=== PATIENT | male | born 1975 | race African-American/Black ===

== ENCOUNTER 2017-04-01 12:12 | Emergency (ER) | payer MEDICAID, OTHER ==
[~2017-04-01] VITALS: Ht 180.3 cm; Wt 79.4 kg
[2017-04-01 12:02] VITALS: BP 142/76
[~2017-04-01 12:12] MED LIST: DILANTIN30 MG ORAL
--- NOTE | 2017-04-01 12:53 | Emergency Room Report ---
History of Present Illness General Chief Complaint: Seizure Source: Medical Record, EMS (DARNELL DIETZ M.D.) Present Illness HPI 41YOM BIBEMS from [address] with witnessed seizure activity. Trauma noted abrasions to right forehead, abrasions to inner lip. No additional seizure per EMS. Was not given any meds. Patient post-ictal currently. EMR states has taken dilantin in past. Also ETOH abuse history. (DARNELL DIETZ M.D.) Allergies: Coded Allergies: No Known Allergies (Unverified , 12/24/13) Patient History Limited by: medical condition Past Medical History: seizures Past Surgical History: unable to obtain Social History: Reports: alcohol use Immunizations: UTD Reviewed Nursing Documentation: PMH: Agreed, PSxH: Agreed (DARNELL DIETZ M.D.) Nursing Documentation-PMH Hx Hypertension: Yes Hx Seizures: Yes (DARNELL DIETZ M.D.) Review of Systems All Other Systems: limited - post-ictal (DARNELL DIETZ M.D.) Physical Exam Vital Signs Date Time Temp Pulse Resp B/P Pulse Ox O2 Delivery O2 Flow Rate FiO2 04/01/17 11:55 98.2 72 14 142/76 99 Room Air Sp02 EP Interpretation: reviewed, normal General Appearance: normal inspection, well appearing, no apparent distress, Postictal Head: normocephalic, other - Abrasions to right forehead, inner right lip Eyes: bilateral eye EOMI, bilateral eye PERRL ENT: normal ENT inspection, hearing grossly normal, normal voice Neck: normal inspection, full range of motion, supple, no bony tend Respiratory: normal inspection, lungs clear, normal breath sounds, no respiratory distress, no retraction, no wheezing Cardiovascular #1: regular rate, rhythm, no edema Gastrointestinal: normal inspection, normal bowel sounds, non tender, soft, no guarding, no hernia Genitourinary: no CVA tenderness Musculoskeletal: normal inspection, back normal, normal range of motion, Blaine' s Sign negative Neurologic: normal inspection, alert, responsive, home health care coordinator III-XII nml as tested, motor strength/tone normal, speech normal Psychiatric: normal inspection, judgement/insight normal, mood/affect normal Skin: normal inspection, normal color, no rash (DARNELL DIETZ M.D.) Medical Decision Making Diagnostic Impression: Primary Impression: Seizure ER Course 41YOM with seizure. VSS. Afebrile. CT head unremarkable Endorsed to Dr Quick to followup labs, CXR and endorse for admission at 230pm (DARNELL DIETZ M.D.) ER Course Because of insurance patient will be transferred Case endorsed to Dr. Bro Patient transferred to [facility] (GEORGE QUICK M.D.) EKG Diagnostic Results Rate: normal Rhythm: NSR ST Segments: no acute changes ASA given to the pt in ED: No (DARNELL DIETZ M.D.) Rhythm Strip Diag. Results EP Interpretation: yes Rate: 82 (DARNELL DIETZ M.D.) Last Vital Signs Date Time Temp Pulse Resp B/P Pulse Ox O2 Delivery O2 Flow Rate FiO2 04/01/17 12:02 72 14 Room Air 04/01/17 12:02 142/76 99 04/01/17 11:55 98.2 Status: improved (DARNELL DIETZ M.D.) Status: improved (GEORGE QUICK M.D.) Disposition: XFER SHT-TRM HOSP Condition: Serious DARNELL DIETZ M.D. Apr 01, 2017 12:53 GEORGE QUICK M.D. Apr 01, 2017 16:18
[2017-04-01 13:05] LABS: BASOPHILS % (AUTO) 1.8 % (0.0-2.0); EOSINOPHILS % (AUTO) 4.1 % (0.0-3.0); LYMPHOCYTES % (AUTO) 24.3 % (20.0-45.0); MEAN CORPUSCULAR HEMOGLOBIN 32.2 PG (27.0-31.0); MEAN CORPUSCULAR VOLUME 92 FL (80-99); MEAN PLATELET VOLUME 8.1 FL (6.5-10.1); MONOCYTES % (AUTO) 13.1 % (1.0-10.0); NEUTROPHILS % (AUTO) 56.8 % (45.0-75.0); PLATELET COUNT 257 K/UL (150-450); RED BLOOD COUNT 4.49 M/UL (4.70-6.10); RED CELL DISTRIBUTION WIDTH 12.1 % (11.6-14.8); WHITE BLOOD COUNT 3.7 K/UL (4.8-10.8)
[2017-04-01 13:25] LABS: ACETAMINOPHEN < 10 ug/mL (10-30); ALANINE AMINOTRANSFERASE 26 U/L (3-41); ALCOHOL < 10 mg/dL; ANION GAP 19 (5-15); ASPARTATE AMINO TRANSFERASE 45 U/L (5-40); CALCIUM 9.7 mg/dL (8.6-10.2); CARBON DIOXIDE 24 mEQ/L (20-30); CHLORIDE 98 mEQ/L (98-107); GLOMERULAR FILTRATION RATE > 60 mL/min (>60); HEMOLYSIS 1; POTASSIUM 3.9 mEQ/L (3.4-4.9); SODIUM 141 mEQ/L (135-145); TOTAL PROTEIN 7.9 g/dL (6.6-8.7)
[2017-04-01 13:35] LABS: CKMB 8.6 ng/mL (< 6.7)
--- NOTE | 2017-04-01 14:10 | Diagnostic Imaging Report ---
Indications: Status post seizure Technique: Spiral acquisitions obtained through the brain. Angled axial and coronal 5 x 5 mm slices were reconstructed. Total dose length product 1270 mGycm. CTDI vol(s) 70 mGy. Dose reduction achieved using automated exposure control Comparison: None Findings: There is fairly symmetric bilateral inferior frontal encephalomalacia. There is suggestion of bilateral anterior temporal encephalomalacia, as well. No acute hemorrhage or edema. No mass effect or midline shift. Normal tyler-white differentiation. Normal size ventricles and extra-axial CSF spaces. Visualized orbits and sinuses are unremarkable. The calvarium is intact. 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 A metallic foreign body is seen in the soft tissues posterior to the right mandibular neck and just inferior to the external auditory canal. Impression: Negative for acute intracranial bleed or mass effect Fairly symmetrical bilateral inferior frontal and anterior temporal encephalomalacia. Suspect secondary to prior contusions due to prior head trauma. 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
[2017-04-01 14:34] VITALS: BP 119/68
--- NOTE | 2017-04-01 15:20 | Diagnostic Imaging Report ---
Indication: SOB Technique: One view of the chest Comparison: none Findings: Lungs and pleural spaces are clear. Heart size is normal. There is thoracolumbar scoliotic deformity Impression: No acute process Scoliosis
[2017-04-01 16:04] VITALS: BP 106/76
[2017-04-01 16:22] VITALS: BP 106/76
== END 2017-04-01 16:55 | disposition short-term general hospital (02) ==
LOC: EDBD 12:12 → EMR 13:49
DX: G40.909 Epilepsy, unspecified, not intractable, without status epilepticus (principal); S00.81XA Abrasion of other part of head, initial encounter; S00.511A Abrasion of lip, initial encounter; X58.XXXA Exposure to other specified factors, initial encounter; Y92.89 Other specified places as the place of occurrence of the external cause; I10 Essential (primary) hypertension; M41.85 Other forms of scoliosis, thoracolumbar region; G93.89 Other specified disorders of brain
CPT/HCPCS: 36415; 70450; 71010; 80053; 80185; 80329; 82553; 82962; 85025; 93005; 99285

== ENCOUNTER 2018-07-17 13:27 | Inpatient (IN) | payer OTHER ==
[~2018-07-17] VITALS: Ht 167.6 cm; Wt 80.3 kg
--- NOTE | 2018-07-17 14:04 | Emergency Room Report ---
History of Present Illness General Chief Complaint: Altered Mental Status Source: EMS Present Illness HPI Patient presents with reports of altered mental status Patient was brought in by paramedics Upon arrival the patient did have a tonic-clonic seizure type activity and was postictal afterwards a quick review of the patient's medical history does reveal several presentations to the emergency room with seizure activity At this time the patient is not able to provide significant history There was no IV access and therefore a left-sided EJ 20-gauge IV was placed by myself after alcohol prep Blood was drawn from the IV line and flushed Patient remains postictal Allergies: Coded Allergies: No Known Allergies (Unverified , 12/24/13) UNABLE TO ASSESS (Unverified , 07/17/18) Patient History Limited by: medical condition Past Medical History: see triage record Pertinent Family History: none Reviewed Nursing Documentation: PMH: Agreed; PSxH: Agreed Nursing Documentation-PMH Past Medical History: No History, Except For Hx Hypertension: Yes Hx Seizures: Yes Review of Systems All Other Systems: limited - Other than the ones mentioned in the history of present illness all others are reviewed however they do stay limited due to the patient's mental status Physical Exam Vital Signs Date Time Temp Pulse Resp B/P (MAP) Pulse Ox O2 Delivery O2 Flow Rate FiO2 07/17/18 13:21 97.9 110 20 124/84 96 Room Air 97.9 Sp02 EP Interpretation: reviewed, normal General Appearance: no apparent distress - However appears postictal Head: normocephalic - Scar left forehead, atraumatic Eyes: bilateral eye PERRL ENT: normal pharynx, no angioedema Neck: supple Respiratory: lungs clear Cardiovascular #1: regular rate, rhythm, no edema Gastrointestinal: non tender, soft Musculoskeletal: other - Postictal not following commands Neurologic: responsive - Responsive to physical stimuli otherwise not verbal not following commands, Skin: no rash, warm/dry Lymphatic: no adenopathy Medical Decision Making ER Course Patient had EJ IV line established on the left side of the neck IV hydration and extensive blood work is initiated Given the patient's prolonged post ictal state CT head was also obtained and the case signed out to my oncoming physician, Last Vital Signs Date Time Temp Pulse Resp B/P (MAP) Pulse Ox O2 Delivery O2 Flow Rate FiO2 07/17/18 13:21 97.9 110 20 124/84 96 Room Air 97.9 Signed Out To: Dr toscano 14:30 Adelso Lucas DO Jul 17, 2018 14:04
[2018-07-17 14:06] VITALS: BP 123/74
[2018-07-17] MEDS ORDERED: LORazepam Inj 2mg/ml 1ml ONE (14:09)
[2018-07-17] MEDS ORDERED: levETIRAcetam 500mg/NS100ml 100 ML IVPB ONE (14:15)
[2018-07-17] MEDS ORDERED: LORazepam Inj 2mg/ml 1ml IV ONE (14:15)
[2018-07-17 14:22] LABS: BASOPHILS % (AUTO) 2.3 % (0.0-2.0); EOSINOPHILS % (AUTO) 0.4 % (0.0-3.0); HEMATOCRIT 43.8 % (42.0-52.0); HEMOGLOBIN 14.5 G/DL (14.2-18.0); LYMPHOCYTES % (AUTO) 14.9 % (20.0-45.0); MEAN CORPUSCULAR VOLUME 93 FL (80-99); MONOCYTES % (AUTO) 10.5 % (1.0-10.0); NEUTROPHILS % (AUTO) 71.9 % (45.0-75.0); PLATELET COUNT 311 K/UL (150-450); RED BLOOD COUNT 4.73 M/UL (4.70-6.10); RED CELL DISTRIBUTION WIDTH 12.6 % (11.6-14.8)
[2018-07-17 14:32] LABS: ANION GAP 24 mmol/L (5-15); BLOOD UREA NITROGEN 12 mg/dL (7-18); CALCIUM 9.4 MG/DL (8.5-10.1); CARBON DIOXIDE 13 MMOL/L (21-32); CHLORIDE 103 MMOL/L (98-107); CREATININE 1.5 MG/DL (0.55-1.30); POTASSIUM 3.4 MMOL/L (3.5-5.1); SODIUM 140 MMOL/L (136-145)
[2018-07-17 14:36] LABS: ALANINE AMINOTRANSFERASE 29 U/L (12-78); ALBUMIN 3.5 G/DL (3.4-5.0); ALBUMIN/GLOBULIN RATIO 0.7 (1.0-2.7); ALKALINE PHOSPHATASE 104 U/L (46-116); ASPARTATE AMINO TRANSFERASE 38 U/L (15-37); BILIRUBIN,TOTAL 0.5 MG/DL (0.2-1.0)
--- NOTE | 2018-07-17 14:45 | Emergency Room Report ---
Physical Exam Please see the above note from Dr. Lucas. Patient has seizure here. Ativan was given. Patient has a history of seizures. Keppra was also ordered. Vital Signs Date Time Temp Pulse Resp B/P (MAP) Pulse Ox O2 Delivery O2 Flow Rate FiO2 07/17/18 13:21 97.9 110 20 124/84 96 Room Air 97.9 Note after seizure, O2 sat low as interpreted by me. Sp02 EP Interpretation: reviewed, normal General Appearance: well appearing, Postictal Head: normocephalic, atraumatic Eyes: bilateral eye PERRL, bilateral eye Scleral Injection, bilateral eye other - keeps eyes closed ENT: moist mucus membranes Neck: supple Respiratory: respiratory distress - mild, crackles, rhonchi Cardiovascular #1: tachycardia Cardiovascular #2: 2+ radial (R) Gastrointestinal: normal inspection, non tender, no mass, non-distended, no hernia, decreased bowel sounds, scaphoid Musculoskeletal: back normal, normal range of motion Neurologic: other - postictal Psychiatric: other - postictal Reflexes: 2+ knee (R), 2+ knee (L) Skin: normal inspection, warm/dry Medical Decision Making Diagnostic Impression: Primary Impression: Seizure Additional Impressions: Aspiration pneumonia Qualified Codes: J69.0 - Pneumonitis due to inhalation of food and vomit Cocaine abuse ER Course Patient presents postictal after seizure then seized here. Differential includes noncompliance, breakthrough seizure, head bleed, electrolyte abnormality amongst others. Ativan is given and also Keppra. Evaluation is with CT the head chest x-ray EKG and labs. He will receive IV hydration. CT no bleed. CXR RLL infiltrate. Labs with normal WBC. + cocaine. After the seizure here, he was hypoxic and had some tachypnea. Increasing oxygen, giving breathing treatments, blood cultures, antibiotics and admission. ABG on O2 acceptable ventilation, however hypoxia. Patient remains postictal and somnolent. Non-focal neuro and protects airway. Discussed with Dr. Bolanos who accepts patient. Laboratory Tests Test 07/17/18 13:50 07/17/18 15:25 White Blood Count 6.0 K/UL (4.8-10.8) Red Blood Count 4.73 M/UL (4.70-6.10) Hemoglobin 14.5 G/DL (14.2-18.0) Hematocrit 43.8 % (42.0-52.0) Mean Corpuscular Volume 93 FL (80-99) Mean Corpuscular Hemoglobin 30.6 PG (27.0-31.0) Mean Corpuscular Hemoglobin Concent 33.0 G/DL (32.0-36.0) Red Cell Distribution Width 12.6 % (11.6-14.8) Platelet Count 311 K/UL (150-450) Mean Platelet Volume 7.6 FL (6.5-10.1) Neutrophils (%) (Auto) 71.9 % (45.0-75.0) Lymphocytes (%) (Auto) 14.9 % (20.0-45.0) L Monocytes (%) (Auto) 10.5 % (1.0-10.0) H Eosinophils (%) (Auto) 0.4 % (0.0-3.0) Basophils (%) (Auto) 2.3 % (0.0-2.0) H Sodium Level 140 MMOL/L (136-145) Potassium Level 3.4 MMOL/L (3.5-5.1) L Chloride Level 103 MMOL/L (98-107) Carbon Dioxide Level 13 MMOL/L (21-32) L Anion Gap 24 mmol/L (5-15) H Blood Urea Nitrogen 12 mg/dL (7-18) Creatinine 1.5 MG/DL (0.55-1.30) H Estimate Glomerular Filtration Rate > 60 mL/min (>60) Glucose Level 117 MG/DL (74-106) H Calcium Level 9.4 MG/DL (8.5-10.1) Total Bilirubin 0.5 MG/DL (0.2-1.0) Aspartate Amino Transferase (AST) 38 U/L (15-37) H Alanine Aminotransferase (ALT) 29 U/L (12-78) Alkaline Phosphatase 104 U/L (46-116) Total Protein 8.4 G/DL (6.4-8.2) H Albumin 3.5 G/DL (3.4-5.0) Globulin 4.9 g/dL Albumin/Globulin Ratio 0.7 (1.0-2.7) L Salicylates Level 2.2 ug/mL (2.8-20) L Phenytoin (Dilantin) Level 0.7 ug/mL (10-20) L Serum Alcohol < 3 mg/dL Urine Opiates Screen Negative (NEGATIVE) Urine Barbiturates Screen Negative (NEGATIVE) Phencyclidine (PCP) Screen Negative (NEGATIVE) Urine Amphetamines Screen Negative (NEGATIVE) Urine Benzodiazepines Screen Negative (NEGATIVE) Urine Cocaine Screen Positive (NEGATIVE) H Urine Marijuana (THC) Screen Negative (NEGATIVE) EKG Diagnostic Results Rate: tachycardiac ST Segments: no acute changes - P pulmonale Rhythm Strip Diag. Results Rhythm: no PVC's, no ectopy, other - tachy Chest X-Ray Diagnostic Results Chest X-Ray Diagnostic Results : Chest X-Ray Ordered: Yes # of Views/Limited/Complete: 1 View Indication: Other EP Interpretation: Yes Interpretation: no effusion, no pneumothorax, other - RLL infiltrate Impression: Other Electronically Signed by: Electronically signed by Demetris Max MD Last Vital Signs Date Time Temp Pulse Resp B/P (MAP) Pulse Ox O2 Delivery O2 Flow Rate FiO2 07/17/18 15:35 119 25 139/87 96 Venturi Mask 50 07/17/18 15:26 12.0 07/17/18 13:21 97.9 97.9 Status: improved Disposition: ADMITTED INPATIENT Condition: Serious Scripts No Active Prescriptions or Reported Meds Referrals: [facility],REFERRING (PCP) Demetris Max M.D. Jul 17, 2018 14:45
[2018-07-17] MEDS ORDERED: Albuterol ud Inhalation HHN ONE (15:00)
[2018-07-17] MEDS ORDERED: cefTRIAXone 1 GM in NS 55 ML IVPB ONE (15:00)
[2018-07-17] MEDS ORDERED: UNOBMED (15:04)
[2018-07-17 15:35] VITALS: BP 139/87
--- NOTE | 2018-07-17 16:56 | Infectious Diseases Prog Note ---
Assessment/Plan Problems: (1) Aspiration pneumonia Assessment & Plan: will start levaquin empirically and send sputum culture , aspiration precaution, keep HOB > 30 degree (2) Seizure Assessment & Plan: with break through, restarted on keppra , continue neuro check , neuro eval (3) Cocaine abuse Assessment & Plan: recommend counseling and rehabilitation Subjective Allergies: Coded Allergies: No Known Allergies (Unverified , 12/24/13) UNABLE TO ASSESS (Unverified , 07/17/18) Objective Vital Signs Last 24 Hour Vital Signs Date Time Temp Pulse Resp B/P (MAP) Pulse Ox O2 Delivery O2 Flow Rate FiO2 07/17/18 15:35 119 25 139/87 96 Venturi Mask 50 07/17/18 15:26 118 25 94 Venturi Mask 12.0 50 07/17/18 15:07 122 24 93 Venturi Mask 12.0 50 07/17/18 15:03 122 24 Venturi Mask 12.0 50 07/17/18 14:06 112 20 123/74 93 Room Air 07/17/18 13:21 97.9 110 20 124/84 96 Room Air 97.9 Height (Feet): 5 Height (Inches): 6.00 Weight (Pounds): 150 Laboratory Tests Test 07/17/18 13:50 07/17/18 15:25 White Blood Count 6.0 K/UL (4.8-10.8) Red Blood Count 4.73 M/UL (4.70-6.10) Hemoglobin 14.5 G/DL (14.2-18.0) Hematocrit 43.8 % (42.0-52.0) Mean Corpuscular Volume 93 FL (80-99) Mean Corpuscular Hemoglobin 30.6 PG (27.0-31.0) Mean Corpuscular Hemoglobin Concent 33.0 G/DL (32.0-36.0) Red Cell Distribution Width 12.6 % (11.6-14.8) Platelet Count 311 K/UL (150-450) Mean Platelet Volume 7.6 FL (6.5-10.1) Neutrophils (%) (Auto) 71.9 % (45.0-75.0) Lymphocytes (%) (Auto) 14.9 % (20.0-45.0) L Monocytes (%) (Auto) 10.5 % (1.0-10.0) H Eosinophils (%) (Auto) 0.4 % (0.0-3.0) Basophils (%) (Auto) 2.3 % (0.0-2.0) H Sodium Level 140 MMOL/L (136-145) Potassium Level 3.4 MMOL/L (3.5-5.1) L Chloride Level 103 MMOL/L (98-107) Carbon Dioxide Level 13 MMOL/L (21-32) L Anion Gap 24 mmol/L (5-15) H Blood Urea Nitrogen 12 mg/dL (7-18) Creatinine 1.5 MG/DL (0.55-1.30) H Estimat Glomerular Filtration Rate > 60 mL/min (>60) Glucose Level 117 MG/DL (74-106) H Calcium Level 9.4 MG/DL (8.5-10.1) Total Bilirubin 0.5 MG/DL (0.2-1.0) Aspartate Amino Transf (AST/SGOT) 38 U/L (15-37) H Alanine Aminotransferase (ALT/SGPT) 29 U/L (12-78) Alkaline Phosphatase 104 U/L (46-116) Total Protein 8.4 G/DL (6.4-8.2) H Albumin 3.5 G/DL (3.4-5.0) Globulin 4.9 g/dL Albumin/Globulin Ratio 0.7 (1.0-2.7) L Salicylates Level 2.2 ug/mL (2.8-20) L Phenytoin (Dilantin) Level 0.7 ug/mL (10-20) L Serum Alcohol < 3 mg/dL Urine Opiates Screen Negative (NEGATIVE) Urine Barbiturates Screen Negative (NEGATIVE) Phencyclidine (PCP) Screen Negative (NEGATIVE) Urine Amphetamines Screen Negative (NEGATIVE) Urine Benzodiazepines Screen Negative (NEGATIVE) Urine Cocaine Screen Positive (NEGATIVE) H Urine Marijuana (THC) Screen Negative (NEGATIVE) Current Medications Medications (Trade) Dose Ordered Sig/Gonzalez Route PRN Reason Start Time Stop Time Status Last Admin Dose Admin Dextrose (Dextrose 50%) 25 ml Q1H PRN IV Hypoglycemia 07/17/18 16:30 08/16/18 16:29 Dextrose (Dextrose 50%) 50 ml Q1H PRN IV Hypoglycemia 07/17/18 16:30 08/16/18 16:29 Dextrose/Sodium Chloride 1,000 ml @ 100 mls/hr Q10H IV 07/17/18 17:21 08/16/18 17:20 UNV Folic Acid (Folate) 1 mg DAILY ORAL 07/18/18 09:00 08/17/18 08:59 Heparin Sodium (Porcine) (Heparin 5000 units/ml) 5,000 units EVERY 8 HOURS SUBQ 07/17/18 22:00 08/16/18 21:59 Ondansetron HCl (Zofran) 4 mg Q6H PRN IVP Nausea & Vomiting 07/17/18 16:30 08/16/18 16:29 Phenytoin (Dilantin) 300 mg DAILY ORAL 07/17/18 17:30 08/16/18 17:29 UNV Potassium Chloride 100 ml @ 100 mls/hr NOW ONCE IVPB 07/17/18 16:45 07/17/18 17:44 UNV Sodium Chloride 1,000 ml @ 300 mls/hr Q3H20M IV 07/17/18 14:45 08/16/18 14:44 Thiamine HCl (Vitamin B1) 100 mg DAILY ORAL 07/18/18 09:00 08/17/18 08:59 Beau Padilla M.D. Jul 17, 2018 16:56
[2018-07-17 17:46] VITALS: BP 149/85
[2018-07-17] MEDS ORDERED: Phenytoin Susp 100mg/4ml ORAL SCH ×2 (18:00→21:15)
[2018-07-17] MEDS ORDERED: D5NS 1,000 ML IV SCH (18:00)
--- NOTE | 2018-07-17 18:15 | Consultation ---
DATE OF CONSULTATION: 07/17/2018 INFECTIOUS DISEASE CONSULTATION CONSULTING PHYSICIAN: Beau Padilla M.D. REQUESTING PHYSICIAN: Dr Driss Sauer REASON FOR CONSULTATION: Aspiration pneumonia and possible sepsis. Recommendation for antibiotics treatment and the patient with seizure. HISTORY OF PRESENT ILLNESS: The patient is a 42-year-old male with past medical history of seizure disorder, drug abuse, and hypertension who is noncompliant, was brought in for altered mental status to [facility] emergency room via paramedics. The patient upon arrival had tonic-clonic seizure-type activities and was postictal for a while. The patient had multiple presentations to the emergency room in the past with similar symptoms. Chest x-ray was done in the emergency room showed right lower lobe infiltrate, suspicious for aspiration pneumonia. So, he was given levofloxacin and ceftriaxone, and Infectious Disease consultation was requested for antibiotics treatment and further management. As of note, the patient is postictal, could not provide any history. History was mainly obtained from the medical record. REVIEW OF SYSTEMS: Unable to obtain as the patient is altered. PAST MEDICAL HISTORY: Significant for seizure, hypertension, and drug abuse. PAST SURGICAL HISTORY: Negative, not on record. ALLERGIES: He has no known drug allergy. MEDICATIONS: The patient received levofloxacin and ceftriaxone in the emergency room. For the rest of his medications, please refer to MAR. SOCIAL HISTORY: The patient is homeless. He uses cocaine, drugs and possibly alcohol, unclear amount. FAMILY HISTORY: Unable to obtain. PHYSICAL EXAMINATION: VITAL SIGNS: Show temperature 97.9, pulse 110, respirations 20, blood pressure 124/84, and saturation 96% on room air. GENERAL: Young male, lying in bed, altered, unresponsive on high-flow oxygen via mask, not in acute distress. HEENT: Normocephalic and atraumatic. Pupils are reactive to light. Unable to assess oral mucosa. NECK: Supple. No lymphadenopathy. CARDIOVASCULAR: Regular rate and rhythm. No murmur. LUNGS: Clear with diminished breathing sounds at the bases with crackles on the right lower lobe. ABDOMEN: Soft, nontender, and nondistended. Normal bowel sounds. EXTREMITIES: No edema or cyanosis. Poor skin hygiene. LABORATORY DATA: White count of 6000, hemoglobin of 14.5, and platelet count of 311,000. BUN of 12 and creatinine of 1.5. AST of 38, AST of 29, alkaline phosphatase of 104. Toxicology screening was positive for cocaine in the urine. IMAGING: Chest x-ray showed right lower lobe infiltrate. ASSESSMENT AND RECOMMENDATION: 1. Aspiration pneumonia. We will start the patient on levofloxacin empiric coverage and send sputum culture. Aspiration precaution and keep head of bed more than 30 degrees. 2. Seizure breakthrough due to noncompliance, was restarted on Keppra. Continue neuro check with neuro evaluation. Monitor in tele. 3. Drug abuse with cocaine. Recommend rehabilitation and counseling. Thank you for the consult. ID will continue to follow. Beau Padilla M.D. DR: JIMY JOB#: [id number] CC: DUANE
--- NOTE | 2018-07-17 19:15 | History and Physical Report ---
DATE OF ADMISSION: 07/17/2018 REASON FOR ADMISSION: 1. Seizure. 2. Cocaine abuse. 3. Postictal. HISTORY OF PRESENT ILLNESS: The patient is a 42-year-old gentleman who presented to emergency room acutely encephalopathic with altered mental status, brought in by the paramedics. Upon presentation to the emergency room, he did have a witnessed tonic-clonic seizure activity and is currently postictal. Urine drug screen did note positive cocaine. His creatinine is 1.5, serum bicarbonate of 13 with salicylate level of 2.2. He is currently postictal, but arousable. ALLERGIES: No known drug allergies. PAST MEDICAL HISTORY: 1. Cocaine dependency. 2. Seizure disorder. FAMILY HISTORY: Positive for hypertension. REVIEW OF SYSTEMS: Cannot obtain as the patient is postictal, but arousable. PAST SURGICAL HISTORY: Unknown. The patient is postictal, but arousable. PHYSICAL EXAMINATION: VITAL SIGNS: Blood pressure 149/85, respiratory rate 21, pulse 103, on Venturi mask at 50% FiO2. GENERAL: The patient is somnolent, but arousable with sternal rub. HEENT: Extraocular muscles intact. NECK: No lymphadenopathy noted. CARDIOVASCULAR: S1 and S2. Tachycardic. PULMONARY: Clear to auscultation bilaterally. No rales, rhonchi, or wheezes. ABDOMEN: Nondistended and nontender. EXTREMITIES: No edema. LABORATORY DATA: Laboratories dated July 17, 2018, sodium 140, potassium 3.4, BUN 12, creatinine 1.5, calcium 9.4, AST 38, ALT 29. Blood gas, pH 7.3, pCO2 39, pO2 89. Hemoglobin 14.5, white cell count 6, and platelet count 311,000. Toxicology screen positive for cocaine. Salicylate level 2.2. Phenytoin level 0.7. Serum alcohol less than 3. ASSESSMENT AND PLAN: 1. Seizure disorder with subtherapeutic level of Dilantin and post cocaine dependency abuse and use. At this time, the patient is postictal. We will have Neurology when available to see the patient tomorrow. At this time, the patient is n.p.o. and will be given IV fluids for hydration. 2. Acute kidney injury with creatinine of 1.5, likely secondary to component of intravascular volume depletion. We will hydrate the patient aggressively. 3. Metabolic acidosis, anion gap, possibility due to severe dehydration and postictal. At this time, continue to aggressively hydrate the patient and recheck stat BMP and salicylate level. 4. Cocaine dependency and use. At this time, the patient is postictal and tachycardic. We will avoid any unopposed alpha antihypertensive medications. 5. DVT prophylaxis with heparin subcutaneous. 6. Aspiration pneumonia. At this time, Infectious Disease and Pulmonary to evaluate the patient. Driss Giron MD DR: Brigid JOB#: [id number] CC:
[2018-07-17 19:30] VITALS: BP 133/77
[2018-07-17 20:30] VITALS: BP 132/61
[2018-07-17] MEDS: Heparin 5000 units/ml inj SUBQ SCH (21:24)
[2018-07-17] MEDS: D5NS 1,000 ML IV SCH (21:24)
[2018-07-18] VITALS: BP 138/70
[2018-07-18 04:00] VITALS: BP 155/87
[2018-07-18] MEDS: Heparin 5000 units/ml inj SUBQ SCH ×3 (05:26→21:13)
[2018-07-18 08:00] VITALS: BP 134/79
--- NOTE | 2018-07-18 08:08 | Diagnostic Imaging Report ---
Indication: Altered mental status Technique: Continuous helical CT scanning of the head was performed utilizing automated exposure control without intravenous contrast material. Axial and coronal reconstructions were obtained. Comparison: 04/01/2017 CT dose: Total DLP 1555.02 mGycm; CTDI vol 70.38 mGy Findings: Exam degraded by patient motion. This particularly limits evaluation through the skull base. Within these limitations: There is no acute intracranial hemorrhage, mass effect, midline shift or cortical edema. There is unchanged bilateral for frontal and, to a lesser extent bilateral temporal lobe, encephalomalacia. The ventricles, cisterns and sulci are stable. Visualized mastoid air cells and paranasal sinuses are unremarkable. No acute fracture identified. A unchanged left zygomatic arch fracture is partially visualized. Unchanged small metallic foreign body in the posterior soft tissues adjacent to the right mandibular neck and just inferior to the external auditory canal. IMPRESSION: Exam degraded by patient motion. This particularly limits evaluation through the skull base. Within these limitations: No evidence of acute intracranial hemorrhage, mass effect or midline shift. MRI may be obtained for more sensitive evaluation as clinically indicated. Unchanged bilateral inferior frontal and anterior temporal lobe encephalomalacia. Additional stable findings as above. The CT scanner at [facility] is accredited by the [employer] and the scans are performed using protocols designed to limit radiation exposure to as low as reasonably achievable to attain images of sufficient resolution adequate for diagnostic evaluation.
--- NOTE | 2018-07-18 08:57 | Diagnostic Imaging Report ---
Indication: Shortness of breath Technique: XRAY Chest 1v Comparison: 04/01/2017 FINDINGS/IMPRESSION: Exam significantly limited by patient positioning with the patient rotated and leaning to the right significantly. Within these limitations: Heart size and mediastinal contours appear stable. No definite focal consolidation is noted. Costophrenic sulci appear sharp. No definite pneumothorax. There are remote/healed fracture deformities of some left-sided ribs. Thoracolumbar scoliotic deformity is similar to the prior exam. Consider repeat exam with better positioning for more sensitive evaluation as clinically indicated.
[2018-07-18] MEDS ORDERED: Thiamine 100mg tab ORAL SCH (09:00)
[2018-07-18] MEDS ORDERED: Phenytoin Susp 100mg/4ml ORAL SCH (09:00)
--- NOTE | 2018-07-18 09:11 | Diagnostic Imaging Report ---
Indication: Seizure Technique: XRAY Chest 1v Comparison: 07/17/2018, 14:32 Findings: Right size and mediastinal contours within normal limits. Iliac deformity of the spine again noted. There is some remote left-sided rib fractures. There is questionable subtle opacity in the right lower lung which may be related to confluence of vascular markings. Possible right sulci are sharp. No pneumothorax. Impression: Question subtle asymmetric opacity in the right lower lung which may. A developing infiltrate versus confluence of vascular shadows. Clinical correlation/follow-up exam recommended.
[2018-07-18] MEDS ORDERED: Phenytoin 100mg cap ORAL SCH (09:15)
--- NOTE | 2018-07-18 09:17 | Nephrology Progress Note ---
Subjective Date patient seen: Jul 18, 2018 Time patient seen: 09:08 ROS Limited/Unobtainable: No Constitutional: Reports: weakness Neurologic/Psychiatric: Reports: seizure Allergies: Coded Allergies: No Known Allergies (Unverified , 12/24/13) UNABLE TO ASSESS (Unverified , 07/17/18) Subjective A/P 1) IAIN- + cocaine - volume depletion - On IVFs - patient declining labs, will re-attempt collection 2) Seizure- + Cocaine and subtherapeutic Dilantin - consult Neuro for evaluation and reccs 3) DVT propylaxis- heparin sub q 4) Met Acidosis- patient declined Salicylate redraw - IVFs, and awaiting repeat BMP collection Tx to Tele Objective Last 24 Hour Vital Signs Date Time Temp Pulse Resp B/P (MAP) Pulse Ox O2 Delivery O2 Flow Rate FiO2 07/18/18 08:00 97.9 73 20 134/79 (97) 97 97.9 07/18/18 04:03 92 07/18/18 04:00 Venturi Mask 12.0 07/18/18 04:00 97.9 77 22 155/87 (109) 97 97.9 07/18/18 00:00 Venturi Mask 12.0 07/18/18 00:00 98.4 86 18 138/70 (92) 97 98.4 07/17/18 23:35 97 07/17/18 21:24 94 136/84 07/17/18 21:00 Venturi Mask 12.0 07/17/18 20:55 95 07/17/18 20:30 98.1 94 20 132/61 (84) 95 98.1 07/17/18 20:25 97.8 104 21 133/74 99 Venturi Mask 15.0 50 07/17/18 19:30 97.9 104 21 133/77 100 Venturi Mask 12.0 50 97.9 07/17/18 17:46 103 21 149/85 100 Venturi Mask 50 07/17/18 15:35 119 25 139/87 96 Venturi Mask 50 07/17/18 15:26 118 25 94 Venturi Mask 12.0 50 07/17/18 15:07 122 24 93 Venturi Mask 12.0 50 07/17/18 15:03 122 24 Venturi Mask 12.0 50 07/17/18 14:06 112 20 123/74 93 Room Air 07/17/18 13:21 97.9 110 20 124/84 96 Room Air 97.9 Intake and Output 07/17/18 07/18/18 19:00 07:00 Intake Total 1155 ml 1090 ml Output Total 1100 ml Balance 1155 ml -10 ml Intake Oral 340 ml IV Total 1155 ml 750 ml Output Urine Total 1100 ml # Voids 3 Laboratory Tests 07/17/18 13:50: White Blood Count 6.0, Red Blood Count 4.73, Hemoglobin 14.5, Hematocrit 43.8, Mean Corpuscular Volume 93, Mean Corpuscular Hemoglobin 30.6, Mean Corpuscular Hemoglobin Concent 33.0, Red Cell Distribution Width 12.6, Platelet Count 311, Mean Platelet Volume 7.6, Neutrophils (%) (Auto) 71.9, Lymphocytes (%) (Auto) 14.9L, Monocytes (%) (Auto) 10.5H, Eosinophils (%) (Auto) 0.4, Basophils (%) ( Auto) 2.3H, Sodium Level 140, Potassium Level 3.4L, Chloride Level 103, Carbon Dioxide Level 13L, Anion Gap 24H, Blood Urea Nitrogen 12, Creatinine 1.5H, Estimat Glomerular Filtration Rate > 60, Glucose Level 117H, Calcium Level 9.4, Total Bilirubin 0.5, Aspartate Amino Transf (AST/SGOT) 38H, Alanine Aminotransferase (ALT/SGPT) 29, Alkaline Phosphatase 104, Troponin I 0.000, Total Protein 8.4H, Albumin 3.5, Globulin 4.9, Albumin/Globulin Ratio 0.7L, Salicylates Level 2.2L, Phenytoin (Dilantin) Level 0.7L, Serum Alcohol < 3 07/17/18 14:51: Arterial Blood pH 7.337L, Arterial Blood Partial Pressure CO2 38.9, Arterial Blood Partial Pressure O2 88.8, Arterial Blood HCO3 20.4L, Arterial Blood Oxygen Saturation 96.0, Arterial Blood Base Excess -5.0, Fortunato Test Positive 07/17/18 15:25: Urine Opiates Screen Negative, Urine Barbiturates Screen Negative, Phencyclidine (PCP) Screen Negative, Urine Amphetamines Screen Negative, Urine Benzodiazepines Screen Negative, Urine Cocaine Screen PositiveH, Urine Marijuana (THC) Screen Negative Height (Feet): 5 Height (Inches): 6.00 Weight (Pounds): 174 Driss Giron MD Jul 18, 2018 09:17
[2018-07-18] MEDS: D5NS 1,000 ML IV SCH ×3 (09:27→23:48)
[2018-07-18 10:58] LABS: BASOPHILS % (AUTO) 0.5 % (0.0-2.0); EOSINOPHILS % (AUTO) 0.3 % (0.0-3.0); HEMATOCRIT 39.8 % (42.0-52.0); HEMOGLOBIN 13.2 G/DL (14.2-18.0); LYMPHOCYTES % (AUTO) 14.5 % (20.0-45.0); MEAN CORPUSCULAR VOLUME 92 FL (80-99); MONOCYTES % (AUTO) 5.3 % (1.0-10.0); NEUTROPHILS % (AUTO) 79.4 % (45.0-75.0); PLATELET COUNT 273 K/UL (150-450); RED BLOOD COUNT 4.31 M/UL (4.70-6.10); RED CELL DISTRIBUTION WIDTH 12.9 % (11.6-14.8); WHITE BLOOD COUNT 7.2 K/UL (4.8-10.8)
[2018-07-18 11:19] LABS: ANION GAP 8 mmol/L (5-15); BLOOD UREA NITROGEN 7 mg/dL (7-18); CARBON DIOXIDE 26 MMOL/L (21-32); CHLORIDE 108 MMOL/L (98-107); POTASSIUM 3.3 MMOL/L (3.5-5.1); SODIUM 142 MMOL/L (136-145)
[2018-07-18 12:00] VITALS: BP 129/73
[2018-07-18] MEDS ORDERED: D5NS 1000ml IV ONE (15:35)
[2018-07-18] MEDS ORDERED: Tubing IV Secondary IV ONE (15:35)
[2018-07-18 16:00] VITALS: BP 116/69
--- NOTE | 2018-07-18 16:31 | Infectious Diseases Prog Note ---
Assessment/Plan Problems: (1) Aspiration pneumonia Assessment & Plan: continue levaquin empirically pending sputum culture , aspiration precaution, keep HOB > 30 degree (2) Seizure Assessment & Plan: with break through, restarted on keppra , continue neuro check , neuro eval (3) Cocaine abuse Assessment & Plan: recommend counseling and rehabilitation (4) Bacteremia due to Gram-positive bacteria Assessment & Plan: will start vancomycin pending identification Subjective Constitutional: Reports: no symptoms HEENT: Reports: no symptoms Respiratory: Reports: productive cough Breasts: Reports: no symptoms Cardiovascular: Reports: no symptoms Gastrointestinal/Abdominal: Reports: no symptoms Genitourinary: Reports: no symptoms Neurologic: Reports: weakness, confusion Psychiatric: Reports: depression Skin: Reports: no symptoms Endocrine: Reports: no symptoms Hematologic: Reports: no symptoms Musculoskeletal: Reports: no symptoms Allergies: Coded Allergies: No Known Allergies (Unverified , 12/24/13) UNABLE TO ASSESS (Unverified , 07/17/18) Objective Vital Signs Last 24 Hour Vital Signs Date Time Temp Pulse Resp B/P (MAP) Pulse Ox O2 Delivery O2 Flow Rate FiO2 07/18/18 16:00 Venturi Mask 12.0 07/18/18 16:00 97.9 73 18 116/69 (85) 98 97.9 07/18/18 12:00 96.6 64 20 129/73 (91) 100 96.6 07/18/18 12:00 Venturi Mask 12.0 07/18/18 12:00 66 07/18/18 09:28 73 134/79 07/18/18 08:00 97.9 73 20 134/79 (97) 97 97.9 07/18/18 08:00 73 07/18/18 08:00 Venturi Mask 12.0 07/18/18 04:03 92 07/18/18 04:00 Venturi Mask 12.0 07/18/18 04:00 97.9 77 22 155/87 (109) 97 97.9 07/18/18 00:00 Venturi Mask 12.0 07/18/18 00:00 98.4 86 18 138/70 (92) 97 98.4 07/17/18 23:35 97 07/17/18 21:24 94 136/84 07/17/18 21:00 Venturi Mask 12.0 07/17/18 20:55 95 07/17/18 20:30 98.1 94 20 132/61 (84) 95 98.1 07/17/18 20:25 97.8 104 21 133/74 99 Venturi Mask 15.0 50 07/17/18 19:30 97.9 104 21 133/77 100 Venturi Mask 12.0 50 97.9 07/17/18 17:46 103 21 149/85 100 Venturi Mask 50 Height (Feet): 5 Height (Inches): 6.00 Weight (Pounds): 174 General Appearance: WD/WN, no acute distress HEENT: normocephalic, atraumatic, anicteric, mucous membranes moist, PERRL Respiratory/Chest: chest wall non-tender, no respiratory distress, no accessory muscle use, decreased breath sounds, crackles/rales Cardiovascular: normal peripheral pulses, normal rate, regular rhythm, no gallop/murmur, no JVD Abdomen: normal bowel sounds, soft, non tender, no organomegaly, non distended , no mass, no scars Extremities: no cyanosis, no clubbing Skin: no rash, no lesions, no ulcers Neurologic/Psychiatric: alert, responsive Lymphatic: no neck adenopathy, no groin adenopathy Musculoskeletal: normal muscle bulk, no effusion Microbiology Date/Time Source Procedure Growth Status 07/17/18 14:50 Blood Blood Culture - Preliminary Resulted Laboratory Tests Test 07/18/18 10:30 White Blood Count 7.2 K/UL (4.8-10.8) Red Blood Count 4.31 M/UL (4.70-6.10) L Hemoglobin 13.2 G/DL (14.2-18.0) L Hematocrit 39.8 % (42.0-52.0) L Mean Corpuscular Volume 92 FL (80-99) Mean Corpuscular Hemoglobin 30.6 PG (27.0-31.0) Mean Corpuscular Hemoglobin Concent 33.1 G/DL (32.0-36.0) Red Cell Distribution Width 12.9 % (11.6-14.8) Platelet Count 273 K/UL (150-450) Mean Platelet Volume 7.8 FL (6.5-10.1) Neutrophils (%) (Auto) 79.4 % (45.0-75.0) H Lymphocytes (%) (Auto) 14.5 % (20.0-45.0) L Monocytes (%) (Auto) 5.3 % (1.0-10.0) Eosinophils (%) (Auto) 0.3 % (0.0-3.0) Basophils (%) (Auto) 0.5 % (0.0-2.0) Sodium Level 142 MMOL/L (136-145) Potassium Level 3.3 MMOL/L (3.5-5.1) L Chloride Level 108 MMOL/L (98-107) H Carbon Dioxide Level 26 MMOL/L (21-32) Anion Gap 8 mmol/L (5-15) Blood Urea Nitrogen 7 mg/dL (7-18) Creatinine 1.0 MG/DL (0.55-1.30) Estimat Glomerular Filtration Rate > 60 mL/min (>60) Glucose Level 129 MG/DL (74-106) H Calcium Level 9.0 MG/DL (8.5-10.1) Current Medications Medications (Trade) Dose Ordered Sig/Gonzalez Route PRN Reason Start Time Stop Time Status Last Admin Dose Admin Amlodipine Besylate (Norvasc) 10 mg DAILY ORAL 07/18/18 09:00 08/17/18 08:59 07/18/18 09:28 Clonidine HCl (Catapres Tab) 0.1 mg Q4H PRN ORAL For High Blood Pressure 07/17/18 18:45 08/16/18 18:44 Dextrose (Dextrose 50%) 25 ml Q1H PRN IV Hypoglycemia 07/17/18 16:30 08/16/18 16:29 Dextrose (Dextrose 50%) 50 ml Q1H PRN IV Hypoglycemia 07/17/18 16:30 08/16/18 16:29 Dextrose/Sodium Chloride 1,000 ml @ 100 mls/hr Q10H IV 07/17/18 21:00 08/16/18 20:59 07/18/18 09:27 Folic Acid (Folate) 1 mg DAILY ORAL 07/18/18 09:00 08/17/18 08:59 07/18/18 09:28 Heparin Sodium (Porcine) (Heparin 5000 units/ml) 5,000 units EVERY 8 HOURS SUBQ 07/17/18 22:00 08/16/18 21:59 Levofloxacin 150 ml @ 100 mls/hr Q24H IVPB 07/18/18 16:00 07/25/18 15:59 07/18/18 16:08 Ondansetron HCl (Zofran) 4 mg Q6H PRN IVP Nausea & Vomiting 07/17/18 16:30 08/16/18 16:29 Phenytoin (Dilantin) 300 mg DAILY ORAL 07/18/18 09:15 08/17/18 09:14 07/18/18 09:29 Thiamine HCl (Vitamin B1) 100 mg DAILY ORAL 07/18/18 09:00 08/17/18 08:59 07/18/18 09:28 Vancomycin HCl (Vanco rx to dose) 1 ea DAILY PRN MISC Per rx protocol 07/18/18 14:15 08/17/18 14:14 Vancomycin HCl/ Dextrose 250 ml @ 125 mls/hr ONCE ONCE IVPB 07/18/18 17:00 07/18/18 18:59 Vancomycin HCl/ Dextrose 250 ml @ 166.667 mls/hr Q12HR@0500,1700 IVPB 07/19/18 05:00 07/24/18 04:59 Beau Padilla M.D. Jul 18, 2018 16:31
[2018-07-18] MEDS ORDERED: Vancomycin 1.5 GM/D5W 250ML IVPB ONE (17:00)
--- NOTE | 2018-07-18 19:55 | Cardiology Report ---
APPROVED REPORT EKG Measurement Heart [id number] Sinus tachycardia Right atrial enlargement Nonspecific ST and T wave abnormality Abnormal ECG
[2018-07-18 20:00] VITALS: BP 111/65
--- NOTE | 2018-07-18 20:23 | Pulmonology Progress Note ---
Assessment/Plan Assessment/Plan possible aspiration pneumonia sepsis seizure disorder PLAN agree with plan antibiotics respiratory care oxygen ID follow up monitor as is impression, plan, and exam edited and reviewed in detail care discussed with RN Subjective Allergies: Coded Allergies: No Known Allergies (Unverified , 12/24/13) UNABLE TO ASSESS (Unverified , 07/17/18) Subjective care reviewed ID noted cultures noted Objective Last 24 Hour Vital Signs Date Time Temp Pulse Resp B/P (MAP) Pulse Ox O2 Delivery O2 Flow Rate FiO2 07/18/18 16:00 70 07/18/18 16:00 Venturi Mask 12.0 07/18/18 16:00 97.9 73 18 116/69 (85) 98 97.9 07/18/18 12:00 96.6 64 20 129/73 (91) 100 96.6 07/18/18 12:00 Venturi Mask 12.0 07/18/18 12:00 66 07/18/18 09:28 73 134/79 07/18/18 08:00 97.9 73 20 134/79 (97) 97 97.9 07/18/18 08:00 73 07/18/18 08:00 Venturi Mask 12.0 07/18/18 04:03 92 07/18/18 04:00 Venturi Mask 12.0 07/18/18 04:00 97.9 77 22 155/87 (109) 97 97.9 07/18/18 00:00 Venturi Mask 12.0 07/18/18 00:00 98.4 86 18 138/70 (92) 97 98.4 07/17/18 23:35 97 07/17/18 21:24 94 136/84 07/17/18 21:00 Venturi Mask 12.0 07/17/18 20:55 95 07/17/18 20:30 98.1 94 20 132/61 (84) 95 98.1 07/17/18 20:25 97.8 104 21 133/74 99 Venturi Mask 15.0 50 Intake and Output 07/17/18 07/18/18 19:00 07:00 Intake Total 1155 ml 1190 ml Output Total 1100 ml Balance 1155 ml 90 ml Intake Oral 340 ml IV Total 1155 ml 850 ml Output Urine Total 1100 ml # Voids 3 Objective WDWN NAD moderate breath sounds bilaterally with occasional rhonchi [id number] without MRG NABS nontender no HSM no CCE nonfocal Microbiology Date/Time Source Procedure Growth Status 07/17/18 14:50 Blood Blood Culture - Preliminary Resulted Laboratory Tests 07/18/18 10:30: White Blood Count 7.2, Red Blood Count 4.31L, Hemoglobin 13.2L, Hematocrit 39.8L , Mean Corpuscular Volume 92, Mean Corpuscular Hemoglobin 30.6, Mean Corpuscular Hemoglobin Concent 33.1, Red Cell Distribution Width 12.9, Platelet Count 273, Mean Platelet Volume 7.8, Neutrophils (%) (Auto) 79.4H, Lymphocytes ( %) (Auto) 14.5L, Monocytes (%) (Auto) 5.3, Eosinophils (%) (Auto) 0.3, Basophils (%) (Auto) 0.5, Sodium Level 142, Potassium Level 3.3L, Chloride Level 108H, Carbon Dioxide Level 26, Anion Gap 8, Blood Urea Nitrogen 7, Creatinine 1.0, Estimat Glomerular Filtration Rate > 60, Glucose Level 129H, Calcium Level 9.0 Current Medications Medications (Trade) Dose Ordered Sig/Gonzalez Route PRN Reason Start Time Stop Time Status Last Admin Dose Admin Amlodipine Besylate (Norvasc) 10 mg DAILY ORAL 07/18/18 09:00 08/17/18 08:59 07/18/18 09:28 Clonidine HCl (Catapres Tab) 0.1 mg Q4H PRN ORAL For High Blood Pressure 07/17/18 18:45 08/16/18 18:44 Dextrose (Dextrose 50%) 25 ml Q1H PRN IV Hypoglycemia 07/17/18 16:30 08/16/18 16:29 Dextrose (Dextrose 50%) 50 ml Q1H PRN IV Hypoglycemia 07/17/18 16:30 08/16/18 16:29 Dextrose/Sodium Chloride 1,000 ml @ 100 mls/hr Q10H IV 07/17/18 21:00 08/16/18 20:59 07/18/18 17:27 Folic Acid (Folate) 1 mg DAILY ORAL 07/18/18 09:00 08/17/18 08:59 07/18/18 09:28 Heparin Sodium (Porcine) (Heparin 5000 units/ml) 5,000 units EVERY 8 HOURS SUBQ 07/17/18 22:00 08/16/18 21:59 Levofloxacin 150 ml @ 100 mls/hr Q24H IVPB 07/18/18 16:00 07/25/18 15:59 07/18/18 16:08 Ondansetron HCl (Zofran) 4 mg Q6H PRN IVP Nausea & Vomiting 07/17/18 16:30 08/16/18 16:29 Phenytoin (Dilantin) 300 mg DAILY ORAL 07/18/18 09:15 08/17/18 09:14 07/18/18 09:29 Thiamine HCl (Vitamin B1) 100 mg DAILY ORAL 07/18/18 09:00 08/17/18 08:59 07/18/18 09:28 Vancomycin HCl (Vanco rx to dose) 1 ea DAILY PRN MISC Per rx protocol 07/18/18 14:15 08/17/18 14:14 Vancomycin HCl/ Dextrose 250 ml @ 166.667 mls/hr Q12HR@0500,1700 IVPB 07/19/18 05:00 07/24/18 04:59 Kenny Andrade MD Jul 18, 2018 20:23
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
[2018-07-19] VITALS (7 sets, daily range): BP systolic 112–141; BP diastolic 53–80
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
[2018-07-19] MEDS ORDERED: Vancomycin 1250mg/D5W 250ml 250 ML IVPB SCH (05:00)
[2018-07-19] MEDS ORDERED: Vancomycin 1250mg/D5W 250ml IVPB SCH (05:00)
[2018-07-19] MEDS: D5NS 1,000 ML IV SCH (05:21)
[2018-07-19] MEDS: Heparin 5000 units/ml inj SUBQ SCH ×3 (05:22→21:09)
[2018-07-19 07:19] LABS: BASOPHILS % (AUTO) 1.1 % (0.0-2.0); EOSINOPHILS % (AUTO) 1.1 % (0.0-3.0); HEMATOCRIT 37.6 % (42.0-52.0); HEMOGLOBIN 12.4 G/DL (14.2-18.0); LYMPHOCYTES % (AUTO) 41.1 % (20.0-45.0); MEAN CORPUSCULAR VOLUME 93 FL (80-99); MONOCYTES % (AUTO) 10.6 % (1.0-10.0); NEUTROPHILS % (AUTO) 46.1 % (45.0-75.0); PLATELET COUNT 243 K/UL (150-450); RED BLOOD COUNT 4.05 M/UL (4.70-6.10); RED CELL DISTRIBUTION WIDTH 12.9 % (11.6-14.8); WHITE BLOOD COUNT 3.7 K/UL (4.8-10.8)
[2018-07-19 07:51] LABS: ANION GAP 8 mmol/L (5-15); BLOOD UREA NITROGEN 5 mg/dL (7-18); CALCIUM 9.2 MG/DL (8.5-10.1); CARBON DIOXIDE 27 MMOL/L (21-32); CHLORIDE 111 MMOL/L (98-107); POTASSIUM 3.7 MMOL/L (3.5-5.1); SODIUM 145 MMOL/L (136-145)
--- NOTE | 2018-07-19 08:29 | Nephrology Progress Note ---
Assessment/Plan Assessment/Plan A/P 1) IAIN- + cocaine - resolved 2) Seizure- + Cocaine/Alcohol - appreciate Neuro input 3) DVT propylaxis- heparin sub q 4) Met Acidosis- resolved Tx to Med Surg OK for DC cslt CW for placement Subjective Date patient seen: Jul 19, 2018 Time patient seen: 08:26 ROS Limited/Unobtainable: No Allergies: Coded Allergies: No Known Allergies (Unverified , 12/24/13) UNABLE TO ASSESS (Unverified , 07/17/18) All Systems: reviewed and negative except above Subjective Patient more awake and coherent this am Objective Last 24 Hour Vital Signs Date Time Temp Pulse Resp B/P (MAP) Pulse Ox O2 Delivery O2 Flow Rate FiO2 07/19/18 08:06 67 141/67 07/19/18 07:13 Room Air 07/19/18 04:00 57 07/19/18 04:00 98.0 83 17 124/69 (87) 96 98.0 07/19/18 00:00 68 07/19/18 00:00 98.2 78 19 121/73 (89) 96 98.2 07/18/18 20:00 76 07/18/18 20:00 Room Air 07/18/18 20:00 97.9 76 20 111/65 (80) 100 97.9 07/18/18 16:00 70 07/18/18 16:00 Venturi Mask 12.0 07/18/18 16:00 97.9 73 18 116/69 (85) 98 97.9 07/18/18 12:00 96.6 64 20 129/73 (91) 100 96.6 07/18/18 12:00 Venturi Mask 12.0 07/18/18 12:00 66 07/18/18 09:28 73 134/79 Intake and Output 07/18/18 07/19/18 19:00 07:00 Intake Total 1590 ml 1680 ml Output Total 700 ml Balance 890 ml 1680 ml Intake Oral 540 ml 360 ml IV Total 1050 ml 1320 ml Output Urine Total 700 ml # Voids 2 1 Laboratory Tests 07/18/18 10:30: White Blood Count 7.2, Red Blood Count 4.31L, Hemoglobin 13.2L, Hematocrit 39.8L , Mean Corpuscular Volume 92, Mean Corpuscular Hemoglobin 30.6, Mean Corpuscular Hemoglobin Concent 33.1, Red Cell Distribution Width 12.9, Platelet Count 273, Mean Platelet Volume 7.8, Neutrophils (%) (Auto) 79.4H, Lymphocytes ( %) (Auto) 14.5L, Monocytes (%) (Auto) 5.3, Eosinophils (%) (Auto) 0.3, Basophils (%) (Auto) 0.5, Sodium Level 142, Potassium Level 3.3L, Chloride Level 108H, Carbon Dioxide Level 26, Anion Gap 8, Blood Urea Nitrogen 7, Creatinine 1.0, Estimat Glomerular Filtration Rate > 60, Glucose Level 129H, Calcium Level 9.0 07/19/18 06:40: White Blood Count 3.7L, Red Blood Count 4.05L, Hemoglobin 12.4L, Hematocrit 37.6L, Mean Corpuscular Volume 93, Mean Corpuscular Hemoglobin 30.7, Mean Corpuscular Hemoglobin Concent 33.1, Red Cell Distribution Width 12.9, Platelet Count 243, Mean Platelet Volume 7.8, Neutrophils (%) (Auto) 46.1, Lymphocytes (% ) (Auto) 41.1, Monocytes (%) (Auto) 10.6H, Eosinophils (%) (Auto) 1.1, Basophils (%) (Auto) 1.1, Sodium Level 145, Potassium Level 3.7, Chloride Level 111H, Carbon Dioxide Level 27, Anion Gap 8, Blood Urea Nitrogen 5L, Creatinine 1.0, Estimat Glomerular Filtration Rate > 60, Glucose Level 102, Calcium Level 9.2 Height (Feet): 5 Height (Inches): 6.00 Weight (Pounds): 174 General Appearance: no apparent distress, alert EENT: normal ENT inspection Neck: normal alignment, supple Cardiovascular: normal rate, regular rhythm Respiratory/Chest: lungs clear, normal breath sounds Abdomen: non tender, soft Edema: no edema noted Arm (L), no edema noted Arm (R), no edema noted Leg (L), no edema noted Leg (R), no edema noted Pedal (L), no edema noted Pedal (R), no edema noted Generalized Driss Giron MD Jul 19, 2018 08:29
[2018-07-19] MEDS ORDERED: Thiamine 100mg tab ORAL SCH (09:00)
--- NOTE | 2018-07-19 11:26 | Pulmonology Progress Note ---
Assessment/Plan Assessment/Plan possible aspiration pneumonia sepsis seizure disorder PLAN agree with plan antibiotics per ID respiratory care as is oxygen ID follow up monitor as is impression, plan, and exam edited and reviewed in detail care discussed with RN Subjective Allergies: Coded Allergies: No Known Allergies (Unverified , 12/24/13) UNABLE TO ASSESS (Unverified , 07/17/18) Subjective care reviewed ID noted cultures noted Objective Last 24 Hour Vital Signs Date Time Temp Pulse Resp B/P (MAP) Pulse Ox O2 Delivery O2 Flow Rate FiO2 07/19/18 08:06 67 141/67 07/19/18 08:00 98.0 67 17 141/67 (91) 96 98.0 07/19/18 07:43 64 07/19/18 07:13 Room Air 07/19/18 04:00 57 07/19/18 04:00 98.0 83 17 124/69 (87) 96 98.0 07/19/18 00:00 68 07/19/18 00:00 98.2 78 19 121/73 (89) 96 98.2 07/18/18 20:00 76 07/18/18 20:00 Room Air 07/18/18 20:00 97.9 76 20 111/65 (80) 100 97.9 07/18/18 16:00 70 07/18/18 16:00 Venturi Mask 12.0 07/18/18 16:00 97.9 73 18 116/69 (85) 98 97.9 07/18/18 12:00 96.6 64 20 129/73 (91) 100 96.6 07/18/18 12:00 Venturi Mask 12.0 07/18/18 12:00 66 Intake and Output 07/18/18 07/19/18 19:00 07:00 Intake Total 1590 ml 1680 ml Output Total 700 ml Balance 890 ml 1680 ml Intake Oral 540 ml 360 ml IV Total 1050 ml 1320 ml Output Urine Total 700 ml # Voids 2 1 Objective WDWN NAD moderate breath sounds bilaterally with occasional rhonchi [id number] without MRG NABS nontender no HSM no CCE nonfocal Microbiology Date/Time Source Procedure Growth Status 07/17/18 14:50 Blood Blood Culture - Preliminary Staphylococcus Sp Coag Neg Resulted 07/17/18 14:40 Blood Blood Culture - Preliminary NO GROWTH AFTER 24 HOURS Resulted Laboratory Tests 07/19/18 06:40: White Blood Count 3.7L, Red Blood Count 4.05L, Hemoglobin 12.4L, Hematocrit 37.6L, Mean Corpuscular Volume 93, Mean Corpuscular Hemoglobin 30.7, Mean Corpuscular Hemoglobin Concent 33.1, Red Cell Distribution Width 12.9, Platelet Count 243, Mean Platelet Volume 7.8, Neutrophils (%) (Auto) 46.1, Lymphocytes (% ) (Auto) 41.1, Monocytes (%) (Auto) 10.6H, Eosinophils (%) (Auto) 1.1, Basophils (%) (Auto) 1.1, Sodium Level 145, Potassium Level 3.7, Chloride Level 111H, Carbon Dioxide Level 27, Anion Gap 8, Blood Urea Nitrogen 5L, Creatinine 1.0, Estimat Glomerular Filtration Rate > 60, Glucose Level 102, Calcium Level 9.2 Current Medications Medications (Trade) Dose Ordered Sig/Gonzalez Route PRN Reason Start Time Stop Time Status Last Admin Dose Admin Amlodipine Besylate (Norvasc) 10 mg DAILY ORAL 07/19/18 09:00 08/17/18 08:59 07/19/18 08:06 Clonidine HCl (Catapres Tab) 0.1 mg Q4H PRN ORAL For High Blood Pressure 07/19/18 02:45 08/16/18 18:44 Dextrose (Dextrose 50%) 25 ml Q1H PRN IV Hypoglycemia 07/18/18 23:30 08/16/18 16:29 Dextrose (Dextrose 50%) 50 ml Q1H PRN IV Hypoglycemia 07/18/18 23:30 08/16/18 16:29 Folic Acid (Folate) 1 mg DAILY ORAL 07/19/18 09:00 08/17/18 08:59 07/19/18 08:06 Heparin Sodium (Porcine) (Heparin 5000 units/ml) 5,000 units EVERY 8 HOURS SUBQ 07/19/18 06:00 08/16/18 21:59 07/19/18 05:22 Levetiracetam (Keppra) 1,000 mg Q12HR ORAL 07/19/18 09:00 08/17/18 22:59 07/19/18 08:06 Levofloxacin 150 ml @ 100 mls/hr Q24H IVPB 07/19/18 16:00 07/25/18 15:59 Ondansetron HCl (Zofran) 4 mg Q6H PRN IVP Nausea & Vomiting 07/19/18 04:30 08/16/18 16:29 Thiamine HCl (Vitamin B1) 100 mg DAILY ORAL 07/19/18 09:00 08/17/18 08:59 07/19/18 08:05 Vancomycin HCl (Vanco rx to dose) 1 ea DAILY PRN MISC Per rx protocol 07/19/18 09:00 08/17/18 14:14 Vancomycin HCl/ Dextrose 250 ml @ 166.667 mls/hr Q12HR@0500,1700 IVPB 07/19/18 05:00 07/24/18 04:59 07/19/18 05:21 Kenny Andrade MD Jul 19, 2018 11:26
--- NOTE | 2018-07-19 16:10 | Infectious Diseases Prog Note ---
Assessment/Plan Problems: (1) Aspiration pneumonia Assessment & Plan: continue levaquin empirically for 5-7 days , aspiration precaution, keep HOB > 30 degree (2) Seizure Assessment & Plan: with break through, restarted on keppra , continue neuro check , neuro eval (3) Cocaine abuse Assessment & Plan: recommend counseling and rehabilitation (4) Bacteremia due to Gram-positive bacteria Assessment & Plan: most likely contaminant with coag negative staph , will stop vancomycin Subjective Constitutional: Reports: no symptoms HEENT: Reports: no symptoms Respiratory: Reports: no symptoms Breasts: Reports: no symptoms Cardiovascular: Reports: no symptoms Gastrointestinal/Abdominal: Reports: no symptoms Genitourinary: Reports: no symptoms Neurologic: Reports: no symptoms Psychiatric: Reports: no symptoms Skin: Reports: no symptoms Endocrine: Reports: no symptoms Hematologic: Reports: no symptoms Musculoskeletal: Reports: no symptoms Allergies: Coded Allergies: No Known Allergies (Unverified , 12/24/13) UNABLE TO ASSESS (Unverified , 07/17/18) Objective Vital Signs Last 24 Hour Vital Signs Date Time Temp Pulse Resp B/P (MAP) Pulse Ox O2 Delivery O2 Flow Rate FiO2 07/19/18 15:55 98.0 75 17 120/53 (75) 96 98.0 07/19/18 12:29 98.0 67 17 112/80 (91) 96 98.0 07/19/18 08:06 67 141/67 07/19/18 08:00 98.0 67 17 141/67 (91) 96 98.0 07/19/18 07:43 64 07/19/18 07:13 Room Air 07/19/18 04:00 57 07/19/18 04:00 98.0 83 17 124/69 (87) 96 98.0 07/19/18 00:00 68 07/19/18 00:00 98.2 78 19 121/73 (89) 96 98.2 07/18/18 20:00 76 07/18/18 20:00 Room Air 07/18/18 20:00 97.9 76 20 111/65 (80) 100 97.9 Height (Feet): 5 Height (Inches): 6.00 Weight (Pounds): 174 General Appearance: WD/WN, no acute distress HEENT: normocephalic, atraumatic, anicteric, mucous membranes moist Respiratory/Chest: chest wall non-tender, no respiratory distress, no accessory muscle use, decreased breath sounds, crackles/rales Cardiovascular: normal peripheral pulses, normal rate, regular rhythm, no gallop/murmur, no JVD Abdomen: normal bowel sounds, soft, non tender, no organomegaly, non distended , no mass, no scars Extremities: no cyanosis, no clubbing Skin: no rash, no lesions, no ulcers Neurologic/Psychiatric: alert, oriented x 3, responsive Lymphatic: no neck adenopathy, no groin adenopathy Musculoskeletal: normal muscle bulk, no effusion Microbiology Date/Time Source Procedure Growth Status 07/17/18 14:50 Blood Blood Culture - Preliminary Staphylococcus Sp Coag Neg Resulted 07/17/18 14:40 Blood Blood Culture - Preliminary NO GROWTH AFTER 24 HOURS Resulted Laboratory Tests Test 07/19/18 06:40 White Blood Count 3.7 K/UL (4.8-10.8) L Red Blood Count 4.05 M/UL (4.70-6.10) L Hemoglobin 12.4 G/DL (14.2-18.0) L Hematocrit 37.6 % (42.0-52.0) L Mean Corpuscular Volume 93 FL (80-99) Mean Corpuscular Hemoglobin 30.7 PG (27.0-31.0) Mean Corpuscular Hemoglobin Concent 33.1 G/DL (32.0-36.0) Red Cell Distribution Width 12.9 % (11.6-14.8) Platelet Count 243 K/UL (150-450) Mean Platelet Volume 7.8 FL (6.5-10.1) Neutrophils (%) (Auto) 46.1 % (45.0-75.0) Lymphocytes (%) (Auto) 41.1 % (20.0-45.0) Monocytes (%) (Auto) 10.6 % (1.0-10.0) H Eosinophils (%) (Auto) 1.1 % (0.0-3.0) Basophils (%) (Auto) 1.1 % (0.0-2.0) Sodium Level 145 MMOL/L (136-145) Potassium Level 3.7 MMOL/L (3.5-5.1) Chloride Level 111 MMOL/L (98-107) H Carbon Dioxide Level 27 MMOL/L (21-32) Anion Gap 8 mmol/L (5-15) Blood Urea Nitrogen 5 mg/dL (7-18) L Creatinine 1.0 MG/DL (0.55-1.30) Estimat Glomerular Filtration Rate > 60 mL/min (>60) Glucose Level 102 MG/DL (74-106) Calcium Level 9.2 MG/DL (8.5-10.1) Current Medications Medications (Trade) Dose Ordered Sig/Gonzalez Route PRN Reason Start Time Stop Time Status Last Admin Dose Admin Amlodipine Besylate (Norvasc) 10 mg DAILY ORAL 07/19/18 09:00 08/17/18 08:59 07/19/18 08:06 Clonidine HCl (Catapres Tab) 0.1 mg Q4H PRN ORAL For High Blood Pressure 07/19/18 02:45 08/16/18 18:44 Dextrose (Dextrose 50%) 25 ml Q1H PRN IV Hypoglycemia 07/18/18 23:30 08/16/18 16:29 Dextrose (Dextrose 50%) 50 ml Q1H PRN IV Hypoglycemia 07/18/18 23:30 08/16/18 16:29 Folic Acid (Folate) 1 mg DAILY ORAL 07/19/18 09:00 08/17/18 08:59 07/19/18 08:06 Heparin Sodium (Porcine) (Heparin 5000 units/ml) 5,000 units EVERY 8 HOURS SUBQ 07/19/18 06:00 08/16/18 21:59 07/19/18 13:29 Levetiracetam (Keppra) 1,000 mg Q12HR ORAL 07/19/18 09:00 08/17/18 22:59 07/19/18 08:06 Levofloxacin (Levaquin) 500 mg DAILY ORAL 07/20/18 09:00 07/27/18 08:59 Ondansetron HCl (Zofran) 4 mg Q6H PRN IVP Nausea & Vomiting 07/19/18 04:30 08/16/18 16:29 Thiamine HCl (Vitamin B1) 100 mg DAILY ORAL 07/19/18 09:00 08/17/18 08:59 07/19/18 08:05 Beau Padilla M.D. Jul 19, 2018 16:10
[2018-07-19] MEDS ORDERED: D5NS 1000ml IV ONE ×2 (16:28→16:30)
[2018-07-19] MEDS ORDERED: Tubing IV Secondary IV ONE (16:30)
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
[2018-07-20] VITALS: BP 126/76
[2018-07-20 04:00] VITALS: BP 122/75
[2018-07-20] MEDS: Heparin 5000 units/ml inj SUBQ SCH ×2 (05:51→13:18)
[2018-07-20 08:00] VITALS: BP 124/71
--- NOTE | 2018-07-20 08:50 | Pulmonology Progress Note ---
Assessment/Plan Assessment/Plan Assessment/Plan possible aspiration pneumonia sepsis seizure disorder PLAN agree with plan antibiotics per ID respiratory care as is oxygen ID follow up monitor as is impression, plan, and exam edited and reviewed in detail care discussed with RN Subjective Allergies: Coded Allergies: No Known Allergies (Unverified , 12/24/13) UNABLE TO ASSESS (Unverified , 07/17/18) Subjective care reviewed ID noted cultures noted Objective Last 24 Hour Vital Signs Date Time Temp Pulse Resp B/P (MAP) Pulse Ox O2 Delivery O2 Flow Rate FiO2 07/19/18 08:06 67 141/67 07/19/18 08:00 98.0 67 17 141/67 (91) 96 98.0 07/19/18 07:43 64 07/19/18 07:13 Room Air 07/19/18 04:00 57 07/19/18 04:00 98.0 83 17 124/69 (87) 96 98.0 07/19/18 00:00 68 07/19/18 00:00 98.2 78 19 121/73 (89) 96 98.2 07/18/18 20:00 76 07/18/18 20:00 Room Air 07/18/18 20:00 97.9 76 20 111/65 (80) 100 97.9 07/18/18 16:00 70 07/18/18 16:00 Venturi Mask 12.0 07/18/18 16:00 97.9 73 18 116/69 (85) 98 97.9 07/18/18 12:00 96.6 64 20 129/73 (91) 100 96.6 07/18/18 12:00 Venturi Mask 12.0 07/18/18 12:00 66 Intake and Output 07/18/18 07/19/18 19:00 07:00 Intake Total 1590 ml 1680 ml Output Total 700 ml Balance 890 ml 1680 ml Intake Oral 540 ml 360 ml IV Total 1050 ml 1320 ml Output Urine Total 700 ml # Voids 2 1 Objective WDWN NAD moderate breath sounds bilaterally with occasional rhonchi [id number] without MRG NABS nontender no HSM no CCE nonfocal Microbiology Date/Time Source Procedure Growth Status 07/17/18 14:50 Blood Blood Culture - Preliminary Staphylococcus Sp Coag Neg Resulted 07/17/18 14:40 Blood Blood Culture - Preliminary NO GROWTH AFTER 24 HOURS Resulted Laboratory Tests 07/19/18 06:40: White Blood Count 3.7L, Red Blood Count 4.05L, Hemoglobin 12.4L, Hematocrit 37.6L, Mean Corpuscular Volume 93, Mean Corpuscular Hemoglobin 30.7, Mean Corpuscular Hemoglobin Concent 33.1, Red Cell Distribution Width 12.9, Platelet Count 243, Mean Platelet Volume 7.8, Neutrophils (%) (Auto) 46.1, Lymphocytes (% ) (Auto) 41.1, Monocytes (%) (Auto) 10.6H, Eosinophils (%) (Auto) 1.1, Basophils (%) (Auto) 1.1, Sodium Level 145, Potassium Level 3.7, Chloride Level 111H, Carbon Dioxide Level 27, Anion Gap 8, Blood Urea Nitrogen 5L, Creatinine 1.0, Estimat Glomerular Filtration Rate > 60, Glucose Level 102, Calcium Level 9.2 Current Medications Medications (Trade) Dose Ordered Sig/Gonzalez Route PRN Reason Start Time Stop Time Status Last Admin Dose Admin Amlodipine Besylate (Norvasc) 10 mg DAILY ORAL 07/19/18 09:00 08/17/18 08:59 07/19/18 08:06 Clonidine HCl (Catapres Tab) 0.1 mg Q4H PRN ORAL For High Blood Pressure 07/19/18 02:45 08/16/18 18:44 Dextrose (Dextrose 50%) 25 ml Q1H PRN IV Hypoglycemia 07/18/18 23:30 08/16/18 16:29 Dextrose (Dextrose 50%) 50 ml Q1H PRN IV Hypoglycemia 07/18/18 23:30 08/16/18 16:29 Folic Acid (Folate) 1 mg DAILY ORAL 07/19/18 09:00 08/17/18 08:59 07/19/18 08:06 Heparin Sodium (Porcine) (Heparin 5000 units/ml) 5,000 units EVERY 8 HOURS SUBQ 07/19/18 06:00 08/16/18 21:59 07/19/18 05:22 Levetiracetam (Keppra) 1,000 mg Q12HR ORAL 07/19/18 09:00 08/17/18 22:59 07/19/18 08:06 Levofloxacin 150 ml @ 100 mls/hr Q24H IVPB 07/19/18 16:00 07/25/18 15:59 Ondansetron HCl (Zofran) 4 mg Q6H PRN IVP Nausea & Vomiting 07/19/18 04:30 08/16/18 16:29 Thiamine HCl (Vitamin B1) 100 mg DAILY ORAL 07/19/18 09:00 08/17/18 08:59 07/19/18 08:05 Vancomycin HCl (Vanco rx to dose) 1 ea DAILY PRN MISC Per rx protocol 07/19/18 09:00 08/17/18 14:14 Vancomycin HCl/ Dextrose 250 ml @ 166.667 mls/hr Q12HR@0500,1700 IVPB 07/19/18 05:00 07/24/18 04:59 07/19/18 05:21 Time of note does not reflect time patient seen Subjective ROS Limited/Unobtainable: No Allergies: Coded Allergies: No Known Allergies (Unverified , 12/24/13) UNABLE TO ASSESS (Unverified , 07/17/18) Objective Last 24 Hour Vital Signs Date Time Temp Pulse Resp B/P (MAP) Pulse Ox O2 Delivery O2 Flow Rate FiO2 07/20/18 04:00 98.8 77 18 122/75 (91) 99 98.8 07/20/18 00:00 98.8 84 20 126/76 (93) 98 98.8 07/19/18 21:00 Room Air 07/19/18 20:00 98.5 80 20 132/74 (93) 98 98.5 07/19/18 16:30 98.1 72 18 124/66 (85) 96 98.1 07/19/18 15:55 98.0 75 17 120/53 (75) 96 98.0 07/19/18 12:29 98.0 67 17 112/80 (91) 96 98.0 Intake and Output 07/19/18 07/20/18 19:00 07:00 Intake Total 500 ml Balance 500 ml Intake Oral 500 ml # Voids 2 4 Microbiology Date/Time Source Procedure Growth Status 07/17/18 14:50 Blood Blood Culture - Preliminary Staphylococcus Sp Coag Neg Resulted 07/17/18 14:40 Blood Blood Culture - Preliminary NO GROWTH AFTER 48 HOURS Resulted 07/17/18 20:25 Rectum - Final NO CARBAPENEM-RESISTANT ENTEROBACTERI... Complete 07/17/18 20:25 Rectum VRE Culture - Final NO VANCOMYCIN RESISTANT ENTEROCOCCUS ... Complete Current Medications Medications (Trade) Dose Ordered Sig/Gonzalez Route PRN Reason Start Time Stop Time Status Last Admin Dose Admin Amlodipine Besylate (Norvasc) 10 mg DAILY ORAL 07/20/18 09:00 08/17/18 08:59 Clonidine HCl (Catapres Tab) 0.1 mg Q4H PRN ORAL SBP > 160mmHg 07/19/18 17:00 08/16/18 16:59 Dextrose (Dextrose 50%) 25 ml Q1H PRN IV Hypoglycemia 07/19/18 17:30 08/16/18 16:29 Dextrose (Dextrose 50%) 50 ml Q1H PRN IV Hypoglycemia 07/19/18 17:30 08/16/18 16:29 Folic Acid (Folate) 1 mg DAILY ORAL 07/20/18 09:00 08/17/18 08:59 Heparin Sodium (Porcine) (Heparin 5000 units/ml) 5,000 units EVERY 8 HOURS SUBQ 07/19/18 22:00 08/16/18 21:59 07/19/18 21:09 Levetiracetam (Keppra) 1,000 mg Q12HR ORAL 07/19/18 21:00 08/17/18 22:59 07/19/18 21:08 Levofloxacin (Levaquin) 500 mg DAILY ORAL 07/20/18 09:00 07/27/18 08:59 Ondansetron HCl (Zofran) 4 mg Q6H PRN IVP Nausea & Vomiting 07/19/18 17:00 08/16/18 16:59 Thiamine HCl (Vitamin B1) 100 mg DAILY ORAL 07/20/18 09:00 08/17/18 08:59 Demetris Jorge MD Jul 20, 2018 08:50
[2018-07-20] MEDS ORDERED: Levofloxacin 500mg tab ORAL SCH ×2 (09:00)
[2018-07-20] MEDS ORDERED: Thiamine 100mg tab ORAL SCH (09:00)
--- NOTE | 2018-07-20 09:25 | Nephrology Progress Note ---
Assessment/Plan Assessment/Plan A/P 1) IAIN- + cocaine - resolved 2) Seizure- + Cocaine/Alcohol - appreciate Neuro input - OK for DC 3) DVT propylaxis- heparin sub q 4) Met Acidosis- resolved OK for DC patient once CM/SW arranges placement Subjective Date patient seen: Jul 20, 2018 Time patient seen: 09:22 ROS Limited/Unobtainable: No Allergies: Coded Allergies: No Known Allergies (Unverified , 12/24/13) UNABLE TO ASSESS (Unverified , 07/17/18) All Systems: reviewed and negative except above Subjective Patient more awake and coherent this am. Awaiting DC Objective Last 24 Hour Vital Signs Date Time Temp Pulse Resp B/P (MAP) Pulse Ox O2 Delivery O2 Flow Rate FiO2 07/20/18 04:00 98.8 77 18 122/75 (91) 99 98.8 07/20/18 00:00 98.8 84 20 126/76 (93) 98 98.8 07/19/18 21:00 Room Air 07/19/18 20:00 98.5 80 20 132/74 (93) 98 98.5 07/19/18 16:30 98.1 72 18 124/66 (85) 96 98.1 07/19/18 15:55 98.0 75 17 120/53 (75) 96 98.0 07/19/18 12:29 98.0 67 17 112/80 (91) 96 98.0 Intake and Output 07/19/18 07/20/18 19:00 07:00 Intake Total 500 ml Balance 500 ml Intake Oral 500 ml # Voids 2 4 Height (Feet): 5 Height (Inches): 6.00 Weight (Pounds): 177 General Appearance: no apparent distress, alert EENT: normal ENT inspection Neck: normal alignment Cardiovascular: normal rate, regular rhythm Respiratory/Chest: lungs clear, normal breath sounds Abdomen: non tender, soft Edema: no edema noted Arm (L), no edema noted Arm (R), no edema noted Leg (L), no edema noted Leg (R), no edema noted Pedal (L), no edema noted Pedal (R), no edema noted Generalized Driss Giron MD Jul 20, 2018 09:25
--- NOTE | 2018-07-20 09:44 | Discharge Instructions ---
Discharge Instructions Discharge Instructions Services at Discharge: day care Diet: 2 GM sodium (low sodium) Resume Normal Activity?: Yes Activity: light activity Pneumonia Vaccine: vaccine not indicated Influenza Vaccine (Jul to Dec): vaccine not indicated Follow Up Orders Continue seizure medication No alcohol or drugs F/U PCP 1 week For Congestive Heart Failure Reminder Report to your physician any weight gain of 5 pounds or more in one week. Driss Giron MD Jul 20, 2018 09:44
[2018-07-20 12:00] VITALS: BP 120/83
--- NOTE | 2018-07-20 16:35 | Infectious Diseases Prog Note ---
Assessment/Plan Problems: (1) Aspiration pneumonia Assessment & Plan: continue levaquin empirically for 7 days , aspiration precaution, keep HOB > 30 degree (2) Seizure Assessment & Plan: with break through, restarted on keppra , continue neuro check , neuro eval (3) Cocaine abuse Assessment & Plan: recommend counseling and rehabilitation (4) Bacteremia due to Gram-positive bacteria Assessment & Plan: most likely contaminant with coag negative staph , monitor off vancomycin Subjective Constitutional: Reports: no symptoms HEENT: Reports: no symptoms Respiratory: Reports: no symptoms Breasts: Reports: no symptoms Cardiovascular: Reports: no symptoms Gastrointestinal/Abdominal: Reports: no symptoms Genitourinary: Reports: no symptoms Neurologic: Reports: no symptoms Psychiatric: Reports: no symptoms Skin: Reports: no symptoms Endocrine: Reports: no symptoms Hematologic: Reports: no symptoms Musculoskeletal: Reports: no symptoms Allergies: Coded Allergies: No Known Allergies (Unverified , 12/24/13) UNABLE TO ASSESS (Unverified , 07/17/18) Objective Vital Signs Last 24 Hour Vital Signs Date Time Temp Pulse Resp B/P (MAP) Pulse Ox O2 Delivery O2 Flow Rate FiO2 07/20/18 12:00 98.1 81 18 120/83 (95) 100 98.1 07/20/18 09:59 77 124/71 07/20/18 09:00 Room Air 07/20/18 08:00 97.3 77 18 124/71 (88) 97 97.3 07/20/18 04:00 98.8 77 18 122/75 (91) 99 98.8 07/20/18 00:00 98.8 84 20 126/76 (93) 98 98.8 07/19/18 21:00 Room Air 07/19/18 20:00 98.5 80 20 132/74 (93) 98 98.5 Height (Feet): 5 Height (Inches): 6.00 Weight (Pounds): 177 General Appearance: WD/WN, no acute distress HEENT: normocephalic, atraumatic, anicteric, mucous membranes moist Respiratory/Chest: chest wall non-tender, lungs clear, normal breath sounds, no respiratory distress, no accessory muscle use Cardiovascular: normal peripheral pulses, normal rate, regular rhythm, no gallop/murmur, no JVD Abdomen: normal bowel sounds, soft, non tender, no organomegaly, non distended , no mass, no scars Extremities: no cyanosis, no clubbing Skin: no rash, no lesions, no ulcers Neurologic/Psychiatric: alert, oriented x 3, responsive Lymphatic: no neck adenopathy, no groin adenopathy Musculoskeletal: normal muscle bulk, no effusion Microbiology Date/Time Source Procedure Growth Status 07/17/18 20:25 Nasal Nares MRSA Culture - Final Staphylococcus Aureus - Mrsa Complete 07/17/18 20:25 Rectum - Final NO CARBAPENEM-RESISTANT ENTEROBACTERI... Complete 07/17/18 20:25 Rectum VRE Culture - Final NO VANCOMYCIN RESISTANT ENTEROCOCCUS ... Complete Current Medications Medications (Trade) Dose Ordered Sig/Gonzalez Route PRN Reason Start Time Stop Time Status Last Admin Dose Admin Amlodipine Besylate (Norvasc) 10 mg DAILY ORAL 07/20/18 09:00 08/17/18 08:59 07/20/18 09:59 Clonidine HCl (Catapres Tab) 0.1 mg Q4H PRN ORAL SBP > 160mmHg 07/19/18 17:00 08/16/18 16:59 Dextrose (Dextrose 50%) 25 ml Q1H PRN IV Hypoglycemia 07/19/18 17:30 08/16/18 16:29 Dextrose (Dextrose 50%) 50 ml Q1H PRN IV Hypoglycemia 07/19/18 17:30 08/16/18 16:29 Folic Acid (Folate) 1 mg DAILY ORAL 07/20/18 09:00 08/17/18 08:59 07/20/18 09:59 Heparin Sodium (Porcine) (Heparin 5000 units/ml) 5,000 units EVERY 8 HOURS SUBQ 07/19/18 22:00 08/16/18 21:59 07/19/18 21:09 Levetiracetam (Keppra) 1,000 mg Q12HR ORAL 07/19/18 21:00 08/17/18 22:59 07/20/18 09:58 Levofloxacin (Levaquin) 500 mg DAILY ORAL 07/20/18 09:00 07/27/18 08:59 07/20/18 09:58 Ondansetron HCl (Zofran) 4 mg Q6H PRN IVP Nausea & Vomiting 07/19/18 17:00 08/16/18 16:59 Thiamine HCl (Vitamin B1) 100 mg DAILY ORAL 07/20/18 09:00 08/17/18 08:59 07/20/18 09:59 Beau Padilla M.D. Jul 20, 2018 16:35
--- NOTE | 2018-07-21 08:35 | Discharge Summary ---
Discharge Summary Discharge Summary _ DATE OF ADMISSION: 07/17/2018 DATE OF DISCHARGE: 07/20/2018 CONSULTANTS: Dr. Alex Andrade BRIEF HOSPITAL COURSE: Patient is a 42-year-old -[place] male, who presented to ED via paramedics due to altered mental status. Upon arrival, patient had a tonic- clonic seizure type of activity and was postictal after. Upon review of medical records, patient had several visits to the emergency room due to seizure activity. On evaluation at ED, vital signs were stable except for slight tachycardia. A peripheral EJ IV line was established on the left side of the neck. He was given IV Ativan and Keppra. He was given IV hydration. CT scan of the head showed no evidence of acute intracranial hemorrhage, mass effect or midline shift. Chest x-ray showed right lung infiltrate. Creatinine was 1.5, serum bicarbonate 13. Phenytoin level was 0.7. Urine toxicology was positive for cocaine. Post seizure event, he was hypoxic and tachypneic. He was given breathing treatments. He was then admitted for further care. Patient had subtherapeutic Dilantin level. He was placed on nothing by mouth until fully awake. He was placed on seizure precautions. Neuro examination was done. Patient had posttraumatic seizure disorders with seizures provoked by alcohol and cocaine abuse and noncompliance with therapeutic regimen. He was restarted on Keppra 1 g every 12 hours. He was given basics of seizure hygiene. He was seen by infectious disease specialist for aspiration pneumonia. He was started on levofloxacin for empiric coverage. He was placed on aspiration precautions with head of bed elevated. Blood culture was showing growth of gram -positive bacteria. He was started on vancomycin pending identification. Bacteremia most likely contaminant, vancomycin was discontinued. He was given respiratory care. He was initially on ventilatory mask during immediate post ictal stage. He eventually became more alert and responsive. Diet was advanced. He was placed on room air. Kidney injury resolved. Metabolic acidosis resolved. He was strongly counseled against cocaine and alcohol use. There was no further seizure activities noted. Social service was called in to aid with discharge. He was then cleared for discharge home. Stressed compliance with medications. Medications were filled from [facility] pharmacy prior to discharge. FINAL DIAGNOSES: Seizure disorder with acute exacerbation Posttraumatic seizure disorder with seizures provoked by alcohol and cocaine abuse and noncompliance with medications Cocaine/alcohol abuse Acute kidney injury Metabolic acidosis DISPOSITION: Patient was discharged home. Patient signed a homeless discharge. DISCHARGE MEDICATIONS: Refer to Discharge Medication List. DISCHARGE INSTRUCTIONS: Follow up with PCP in a week. I have been assigned to dictate discharge summary on this account, and I was not involved in the patient's management. Lidia Arora NP Jul 21, 2018 08:35
== END 2018-07-20 16:00 | disposition home or self-care (01) | DRG 137 ==
LOC: EDBD 13:27 → EMR 14:02 → EDBEDREQ 14:52 → EDBEDREQSVC 16:21 → EDBEDREQ 17:47 → 2W 18:07 → 2E 07-18 23:03 → 4E 07-19 16:38
DX: J69.0 Pneumonitis due to inhalation of food and vomit (principal); N17.9 Acute kidney failure, unspecified; E87.2 Acidosis; F14.20 Cocaine dependence, uncomplicated; G40.909 Epilepsy, unspecified, not intractable, without status epilepticus; E86.0 Dehydration; R00.0 Tachycardia, unspecified; F10.10 Alcohol abuse, uncomplicated; Z91.14 Patient's other noncompliance with medication regimen; I10 Essential (primary) hypertension; Z59.0 Homelessness; Z87.820 Personal history of traumatic brain injury; F17.200 Nicotine dependence, unspecified, uncomplicated
CPT/HCPCS: 36415; 36600; 70450; 71045; 80048; 80053; 80185; 80299; 80307; 80329; 82803; 84484; 85025; 87040; 87081; 87181; 93005; 94640; 94664; 96361; 96365; 96367; 96375; 99285; J8499

== ENCOUNTER 2020-07-10 21:36 | Emergency (ER) | payer OTHER ==
[~2020-07-10] VITALS: Ht 182.9 cm; Wt 86.2 kg
[~2020-07-10 21:36] MED LIST changes: +UNOBMED
[2020-07-10 21:50] VITALS: BP 168/91
--- NOTE | 2020-07-10 22:24 | Emergency Room Report ---
History of Present Illness General Chief Complaint: Behavioral Complaint Source: EMS Present Illness HPI Disclaimer: Please note that this report is being documented using DRAGON technology. This can lead to erroneous entry secondary to incorrect interpretation by the dictating instrument. HPI: 44-year-old male history of seizure disorder, prior substance abuse presents for evaluation of bizarre behavior. He was found shouting at a local restaurant and brought in by EMS for evaluation. They state he was calm on right admitted to alcohol use but denied drug use. He is not answering questions at this time. He is making eye contact but not engaging with me. He arrives tachycardic oxygenation is within normal limits. Cannot obtain any information from patient at this time PMH: Substance abuse, seizure disorder PSH: Clavicle repair Allergies: None in chart Social Hx: Alcohol use, cocaine use in the past Allergies: Coded Allergies: No Known Allergies (Unverified , 12/24/13) COVID-19 Screening Contact w/high risk pt: No Experienced COVID-19 symptoms?: No COVID-19 Testing performed PUFF IRONER: No Nursing Documentation-PMH Hx Cardiac Problems: Yes - alcohol abuse Hx Hypertension: Yes Hx Neurological Problems: Yes Hx Seizures: Yes Hx Neurologic Surgery: No Hx Brain Shunt: No Review of Systems All Other Systems: limited - Patient not providing any information Physical Exam Vital Signs Date Time Temp Pulse Resp B/P (MAP) Pulse Ox O2 Delivery O2 Flow Rate FiO2 07/10/20 21:39 98.8 130 18 142/88 (106) 99 Room Air General: Awake, not answering questions HEENT: NC/AT. EOMI. making eye contact Cardiovascular: Tachycardic. S1 and S2 normal. No murmur appreciated Resp: Normal work of breathing. No cough, wheezing or crackles appreciated Abdomen: Abdomen is soft, nondistended. Nontender Skin: Intact. No abrasions, laceration or rash over the exposed skin MSK: Normal tone and bulk. Moving all extremities. Deformity over the left clavicle appears consistent with prior repair. Neuro: Awake, not responding verbally. Making good eye contact. Moving all extremities. Procedures Critical Care Time Critical Care Time Total critical care time: Approximately 45 minutes Due to a high probability of clinically significant, life threatening deterioration, the patient required the highest level of preparedness to intervene emergently and I personally spent this critical care time directly and personally managing the patient. This critical care time included obtaining a history, examining the patient, pulse oximetry, ordering and reviewing studies, ordering treatments, evaluating response to treatment and updating management plan as needed, frequent reassessment and discussion with other providers as well as arranging for ultimate disposition. This critical to care time was performed to assess and manage the high probability of life-threatening deterioration that could result in multiorgan failure. This critical care time is separate from the separately billable procedures and treating other patients. Medical Decision Making Diagnostic Impression: Primary Impression: Seizure Additional Impression: Cocaine abuse ER Course Is a 44-year-old male brought in by EMS for bizarre behavior. Differential includes was not limited to psychiatric disorder, electrolyte abnormality, dehydration, intoxication, substance abuse to name a few. Patient arrived tachycardic EKG shows sinus tachycardia without obvious signs of ischemia. Urine tox returned positive for cocaine. Remainder of labs pending. Patient receiving IV fluids and will load with Keppra 2230 Patient had a brief 30 second generalized tonic-clonic seizure-like activity at approximately 2230. Terminated spontaneously and the patient was postictal. Patient was loaded with 2 mg IV Ativan and continues to received his Keppra load. Nasal trumpet placed and patient on supplemental oxygen as the patient was having sonorous respirations. Review of his prior documentation shows he had previously been on Dilantin. I am unable to obtain a Dilantin level at this time as our laboratory equipment is malfunctioning. It appears from prior documentation the patient was transitioned to Keppra though unknown compliance. Labs otherwise returned within normal limits. Slight elevation in alcohol. 0400: Patient sleeping comfortably. Vital signs now within normal limits. Plan to discharge when awake. Refilled prescriptions for Keppra. Will refer to outpatient clinic Laboratory Tests Test 07/10/20 21:44 07/10/20 22:03 Urine Opiates Screen Negative (NEGATIVE) Urine Barbiturates Screen Negative (NEGATIVE) Phencyclidine (PCP) Screen Negative (NEGATIVE) Urine Amphetamines Screen Negative (NEGATIVE) Urine Benzodiazepines Screen Negative (NEGATIVE) Urine Cocaine Screen Positive (NEGATIVE) H Urine Marijuana (THC) Screen Negative (NEGATIVE) White Blood Count 6.7 K/UL (4.8-10.8) Red Blood Count 4.62 M/UL (4.70-6.10) L Hemoglobin 14.1 G/DL (14.2-18.0) L Hematocrit 44.6 % (42.0-52.0) Mean Corpuscular Volume 96 FL (80-99) Mean Corpuscular Hemoglobin 30.5 PG (27.0-31.0) Mean Corpuscular Hemoglobin Concent 31.6 G/DL (32.0-36.0) L Red Cell Distribution Width 13.9 % (11.6-14.8) Platelet Count 358 K/UL (150-450) Mean Platelet Volume 7.5 FL (6.5-10.1) Neutrophils (%) (Auto) 49.0 % (45.0-75.0) Lymphocytes (%) (Auto) 39.0 % (20.0-45.0) Monocytes (%) (Auto) 8.9 % (1.0-10.0) Eosinophils (%) (Auto) 0.9 % (0.0-3.0) Basophils (%) (Auto) 2.3 % (0.0-2.0) H Sodium Level 140 MMOL/L (136-145) Potassium Level 3.8 MMOL/L (3.5-5.1) Chloride Level 100 MMOL/L (98-107) Carbon Dioxide Level 11 MMOL/L (21-32) L Anion Gap 29 mmol/L (5-15) H Blood Urea Nitrogen 13 mg/dL (7-18) Creatinine 1.4 MG/DL (0.55-1.30) H Estimated Glomerular Filtration Rate > 60 mL/min (>60) Glucose Level 80 MG/DL (74-106) Calcium Level 9.2 MG/DL (8.5-10.1) Total Bilirubin 0.3 MG/DL (0.2-1.0) Aspartate Amino Transferase (AST) 36 U/L (15-37) Alanine Aminotransferase (ALT) 20 U/L (12-78) Alkaline Phosphatase 146 U/L (46-116) H Total Protein 9.4 G/DL (6.4-8.2) H Albumin 3.8 G/DL (3.4-5.0) Globulin 5.6 g/dL Albumin/Globulin Ratio 0.7 (1.0-2.7) L Salicylates Level 2.5 ug/mL (2.8-20) L Acetaminophen Level < 2 MCG/ML (10-30) L Serum Alcohol 39 mg/dL EKG Diagnostic Results EKG Time: 22:05 Rate: tachycardiac Other Impression Sinus tachycardia, normal axis, normal intervals, no ST segment changes. Rhythm Strip Diag. Results Rhythm Strip Time: 22:05 EP Interpretation: yes Rate: 112 Rhythm: no PVC's, no ectopy Chest X-Ray Diagnostic Results Chest X-Ray Diagnostic Results : Chest X-Ray Ordered: Yes # of Views/Limited/Complete: 1 View Indication: Other - Cough EP Interpretation: Yes Interpretation: no consolidation, no effusion, no pneumothorax, other - Prior left clavicle repair Impression: Other - Evidence of prior left clavicle repair, no acute infiltrate identified Electronically Signed by: Electronically signed by Dr. Beny Alegria Last Vital Signs Date Time Temp Pulse Resp B/P (MAP) Pulse Ox O2 Delivery O2 Flow Rate FiO2 07/10/20 21:39 98.8 130 18 142/88 (106) 99 Room Air Disposition: HOME, SELF-CARE Condition: Stable Scripts Levetiracetam (KEPPRA) 500 Mg Tablet 500 MG ORAL EVERY 12 HOURS, #60 TAB 0 Refills Prov: Beny Alegria MD 07/11/20 Referrals: [facility],REFERRING (PCP) Beny Alegira MD Jul 10, 2020 22:24
[2020-07-10] MEDS ORDERED: LORazepam Inj 2mg/ml 1ml ONE (22:28)
[2020-07-10] MEDS ORDERED: levETIRAcetam 1,000mg/NS100ml 100 ML IVPB ONE ×2 (22:29→22:30)
[2020-07-10] MEDS ORDERED: LORazepam Inj 2mg/ml 1ml IV ONE (22:30)
[2020-07-10 22:42] LABS: BASOPHILS % (AUTO) 2.3 % (0.0-2.0); EOSINOPHILS % (AUTO) 0.9 % (0.0-3.0); HEMATOCRIT 44.6 % (42.0-52.0); HEMOGLOBIN 14.1 G/DL (14.2-18.0); MEAN CORPUSCULAR VOLUME 96 FL (80-99); MONOCYTES % (AUTO) 8.9 % (1.0-10.0); PLATELET COUNT 358 K/UL (150-450); RED BLOOD COUNT 4.62 M/UL (4.70-6.10); RED CELL DISTRIBUTION WIDTH 13.9 % (11.6-14.8); WHITE BLOOD COUNT 6.7 K/UL (4.8-10.8)
[2020-07-10 22:47] LABS: ANION GAP 29 mmol/L (5-15); BLOOD UREA NITROGEN 13 mg/dL (7-18); CALCIUM 9.2 MG/DL (8.5-10.1); CARBON DIOXIDE 11 MMOL/L (21-32); CHLORIDE 100 MMOL/L (98-107); CREATININE 1.4 MG/DL (0.55-1.30); POTASSIUM 3.8 MMOL/L (3.5-5.1); SODIUM 140 MMOL/L (136-145)
[2020-07-10 22:54] LABS: ALANINE AMINOTRANSFERASE 20 U/L (12-78); ALBUMIN 3.8 G/DL (3.4-5.0); ALBUMIN/GLOBULIN RATIO 0.7 (1.0-2.7); ALKALINE PHOSPHATASE 146 U/L (46-116); ASPARTATE AMINO TRANSFERASE 36 U/L (15-37); BILIRUBIN,TOTAL 0.3 MG/DL (0.2-1.0)
[2020-07-11] MEDS ORDERED: KEPPRA500 M4 ORAL (02:07)
[2020-07-11 08:40] VITALS: BP 121/80
--- NOTE | 2020-07-11 13:54 | Diagnostic Imaging Report ---
Indication: Shortness of breath. Technique: Portable AP view of the chest Comparison: 07/17/2018 Findings: Limited evaluation due to suboptimal positioning, possibly in part related to severe scoliosis. There is been interval surgery with fixation plate now noted on the medial aspect of the clavicle with surrounding callus. Surgical material also partially visualized in the left humeral head. There is some possible streaky opacities versus artifact in the medial left base. Otherwise no focal consolidation. No pleural effusion or pneumothorax. IMPRESSION: Limit evaluation is suboptimal positioning, probably related to severe scoliosis. Possible subtle opacities versus artifact related to rotation in the medial left base. Possibility of developing pneumonia not excluded. Please correlate clinically. Interval surgery with fixation plate on the medial left clavicle and surgical material partially visualized in the left humeral head.
== END 2020-07-11 08:40 | disposition home or self-care (01) ==
LOC: EDUNIT# 21:36 → EDBD 21:36 → EMR 22:10
DX: G40.909 Epilepsy, unspecified, not intractable, without status epilepticus (principal); F14.10 Cocaine abuse, uncomplicated; I10 Essential (primary) hypertension; Z79.899 Other long term (current) drug therapy
CPT/HCPCS: 36415; 71045; 80053; 80307; 85025; 93005; 96361; 96374; 96375; G0480; G0481; J1953; J7030; Z7502; 99291